=== PATIENT | female | born 1985 | race Caucasian/White ===

== ENCOUNTER → 2017-01-18 18:23 | Observation (INO) ==
[2017-01-18 09:40] VITALS: O2SAT 98
[2017-01-18] MEDS: ONDANSETRON 4 MG/2 ML INJECTION IVP PRN ×2 (10:06→16:01)
[2017-01-18] MEDS: D5LR 1,000 ML IV SCH ×2 (10:06→18:52)
[2017-01-18 10:25] VITALS: BMI 29.2
[2017-01-18 16:30] VITALS: BP 118/67; PULSE 83; RESP 18; TEMP 98.2
--- NOTE | 2017-01-18 17:54 | Progress Note ---
OB PP Progress Note Free Text - Date Date: 01/18/17 - Progress Note Progress Note: Pt reports no further bleeding, no pain. Abd gravid, NT AVSS Will dismiss to home, decreased activity. F/U in office in 3 days, sooner prn. Reviewed precautions.
--- NOTE | 2017-01-18 17:55 | Discharge Instructions ---
Discharge Plan - Med Rec/Dispo Prescriptions: No Action NO ROUTINE MEDS #0 PredniSONE [Deltasone] 60 mg PO DAILY 5 Days #15 tab Oxycodone HCl/Acetaminophen (Percocet 5-325 mg Tablet) 1 tab PO Q4HR PRN 3 Days #18 tab PRN Reason: PAIN Acetaminophen 2 tab PO TID PRN #0 PRN Reason: PAIN Azithromycin 1 tab PO DAILY #6 tab - Disposition 01 Discharged Home, Self-Care
[~2017-01-18 18:23] MED LIST: ACETAMINOPHEN 500 MG TABLET PO PRN; DiphenhydrAMINE 25 MG CAPSULE PO PRN; SALINE FLUSH 10ml SYRINGE IVF PRN
== END | disposition home or self-care (01) ==
LOC: MC
PROVIDERS: ADMIT Obstetrics & Gynecology; ATTEND Obstetrics & Gynecology

== ENCOUNTER 2017-06-14 00:07 | Inpatient (IN) ==
[2017-06-14] MEDS ORDERED: ACETAMINOPHEN 500 MG TABLET PO PRN ×2 (08:00→23:52)
[2017-06-14] MEDS ORDERED: METHYLERGONOVINE 0.2 MG/ML INJECTION IM PRN (08:00)
[2017-06-14] MEDS ORDERED: MAG-AL + SIM ORAL LIQUID 30ml PO PRN ×2 (08:00→23:52)
[2017-06-14] MEDS ORDERED: CALCIUM CARBONATE Chewable 500mg TABLET PO PRN ×2 (08:00→23:52)
[2017-06-14] MEDS ORDERED: LIDOCAINE 1% (10mg/ml) 2mL INJ PF SDV ID PRN (08:00)
[2017-06-14] MEDS ORDERED: CARBOPROST 250 MCG/ML INJECTION IM PRN (08:00)
[2017-06-14] MEDS ORDERED: OXYTOCIN DRIP 30 UNIT/500 ML ML IV PRN (08:00)
--- OUTSIDE RECORDS SUMMARY | 2017-06-14 08:01 | External Medical Summary | Continuity of Care Document ---
:1985 Author Organization [facility] Address [address] [place], [place] [id number] Phone Care Team Providers Name Role Phone [facility] Unavailable Unavailable Allergies, Adverse Reactions, Alerts Substance Reaction Severity Status No Known Drug Allergies Unknown Active Medications Medication Instructions Dosage Effective Dates Status Comments (start - stop) Diclegis 10 mg-10 mg take 1 tablet by oral - Active tablet,delayed route every day in release the morning, 1 tablet in the mid-afternoon, and 2 tablets at bedtime VITAMINS take 1 by Oral route - Active (unknown strength) every day TYLENOL (unknown take 3 tablet by ORAL - Active strength) route every 4 days as needed Problems Condition Effective Dates (start - stop) Clinical Status Pap Smear Screening, Cervix - Encounter for suprvsn of normal - , first trimester 10 weeks gestation of - Placenta previa specified as w/o - hemorrhage, first trimester 12 weeks gestation of - Encounter for suprvsn of normal - , first trimester 12 weeks gestation of - Encounter for suprvsn of normal - , first trimester 12 weeks gestation of - Encounter for suprvsn of normal - , second trimester 14 weeks gestation of - Procedures Procedure Date Unknown Results Test Name Date and Time Measure Units Reference Range Abnormal Flag Comments Unknown Advance Directives Directive Yes / No Effective Date File Name Unknown Encounters Encounter Practice Location Reason(s) Diagnoses Date Provider Care Description For Visit Team Members Mayr Bro Placenta previa Dereck-2 [facility] specified as w/o 4-201 [facility], hemorrhage, 7 [address], first [place], [place], [email or web address] Center [id number], weeks gestation Derik Vargas [place] of 120, tel:[phone] [place], [address] [place], [id number] , [place]. tel: [phone] Mary Bro Encounter for Dereck-2 [facility] Ultrasound suprvsn of 4-201 [facility], normal 7 700 [address], , [place], [place], second Center [id number], [email or web address] Derik Vargas [place] weeks gestation 120, tel:[phone] of [place], [address] [place], [id number] , [place]. tel: [phone] Mary rBo Dereck-2 [facility] 0-201 [facility]. [facility], 7 700 [address], [place], [place] [id number], Derik Vargas [place] 120, tel:[phone] [place] [address] [place], [id number] , [place]. tel: [phone] Mary Bro Encounter for Dereck-1 [facility] suprvsn of 2-201 [facility]ena. [facility], normal 7 700 [address], , first [place], [place], [email or web address] Center [id number], weeks gestation Derik Vargas [place] of 120, tel:[phone] [place] [address] [place], [id number] , [place]. tel: [phone] Mary Bro Encounter for Dereck-1 [facility] Ultrasound suprvsn of 2-201 [facility], normal 7 700 [address], , first [place], [place], [email or web address] Center [id number], weeks gestation Derik Vargas [place] of 120, tel:[phone] [place] [address] [place], [id number] , [place]. tel: [phone] Mary Bro Pap Smear Silvestre-2 [facility] In [facility] Screening, 6-201 Nena. [facility], CervixEncounter 7 700 [address], for suprvsn of [facility] [place], normal Center [id number], , first Derik Vargas [place] [id number] 120, tel:[phone] weeks gestation [place] [address] of [place], [id number] , [place]. tel: [phone] Family History Family Member Diagnosis Age At Onset No family history of Hypertension Mother Thrombosis No family history of Lung Disease No family history of Kidney Disease No family history of Stroke No family history of Ovarian Cancer No family history of Breast Cancer No family history of Thyroid Disorder Mother Diabetes No family history of Uterine Cancer No family history of Epilepsy No family history of Colon Cancer No family history of Pulmonary Embolism No family history of Cardiovascular Disease No family history of Osteoporosis Paternal Grandfather Diabetes Immunizations Vaccine Date Status Comments Unknown Payers Payer name Insurance type Covered alliance party ID Authorization(s) [employer] [place] - Medicaid MC [id number] Social History Type Description Quantity Date Captured Unknown Vital Signs Date / Height Weight BMI Pulse Blood Temperature Respiratory Body Head BMI Time: Rate Pressure Rate Surface Circumference percentile Area Unknown Chief Complaint And Reason For Visit Unknown Chief Complaint And Reason For Visit Reason For Referral Reason For Referral Unknown Plan Of Care Date Type Action Status Appointment Angela Yarbrough BOOKED Future Order: Radiology Order Ultrasound < 14 wks ([id number]) Ordered Future Order: Radiology Order Nuchal Translucency ([id number]) Ordered Date Type Problem Goal Intervention Status Start Date Unknown. History Of Present Illness Encounter Date Complaint History Of Present Illness This patient has no known history of present illness Functional Status Encounter Date Functional Assessment Cognitive Assessment Unknown Medications Administered Medication Instructions Dosage Effective Dates (start - stop) Status Comments Drug Treatment Unknown Instructions Date Instruction Additional Information anticipated course of care nutrition and weight gain counseling, special diet toxoplasmosis precautions (cats / raw meat) sexual activity exercise indications for ultrasound influenza vaccine environmental / work hazards travel tobacco (ask, advise, assess, assist and arrange) alcohol illicit / recreational drugs HIV and other routine tests risk factors identified by history use of any medications (including supplements, vitamins, herbs, OTC drugs) smoking counseling domestic violence seat belt use childbirth classes / hospital facilities hospital registration genetic testing new ob handbook
--- OUTSIDE RECORDS SUMMARY | 2017-06-14 08:01 | External Medical Summary | Continuity of Care Document ---
:1985 Author Organization [facility] Address [address] [place], [place] [id number] Phone Care Team Providers Name Role Phone [facility] Unavailable Unavailable Allergies, Adverse Reactions, Alerts Substance [...] Effective Dates (start - stop) Clinical Status Encounter for suprvsn of normal - , first trimester 12 weeks gestation of - Pap Smear Screening, Cervix - Encounter for [...] weeks gestation of - Procedures Procedure Date OB Visit No Charge Results Test Name Date and Time Measure Units Reference Range Abnormal Flag Comments Unknown Advance Directives Directive Yes / No Effective Date File Name Unknown Encounters Encounter Practice Location Reason(s) Diagnoses Date Provider Care Description For Visit Team Members Mary Bro Placenta previa Dereck-2 [facility] In [facility] specified as w/o 4-201 [facility], hemorrhage, 7 [address], first [place], [place], [email or web address] Center [id number], weeks gestation Derik Vargas [place] of 120, tel:[phone] [place] [address] [place], [id number] , [place]. tel: [phone] Mary Bro Encounter for Dereck-2 [facility] Ultrasound suprvsn of 4-201 [facility], normal 7 [address], , [place], [place], second Center [id number], [email or web address] Derik Vargas [place] weeks gestation 120, tel:[phone] of [place] [address], [id number] , [place]. tel: [phone] Mary Bro Encounter for Dereck-1 [facility] suprvsn of 2-201 [facility] [place], normal 7 700 [address], , first [place], [place], [email or web address] Center [id number], weeks gestation Derik Vargas [place] of 120, tel:[phone] [place] [address] [place] [address], [id number] , [place]. tel: [phone] Mary Bro Encounter for Dereck-1 [facility] Ultrasound suprvsn of 2-201 [facility] [place], normal 7 [address], , first [place], [email or web address] Center [id number], weeks gestation Derik Vargas [place] of 120, tel:[phone] [place] [address] [place] [address], [id number] , [place]. tel: [phone] Mary Bro Pap Smear Silvestre-2 [facility] In [facility] Screening, 6-201 [facility], CervixEncounter 7 [address], for suprvsn of [place], [place], normal Center [id number], , first Derik Vargas [place] [email or web address] 120, tel:[phone] weeks gestation [place], [address] of [place], [id number] , [place]. tel: [phone] Family History Family Member Diagnosis Age At [...] Unknown Payers Payer name Insurance type Covered green party ID Authorization(s) [employer] Plan [place] - Medicaid MC [id number] Social History Type Description Quantity Date Captured Alcohol Use Details No Caffeine Use Details Unknown Tobacco Use Status Unknown Smoking Status Never smoker Vital Signs Date / Height Weight BMI Pulse Blood Temperature Respiratory Body Head BMI Time: Rate Pressure Rate Surface Circumference percentile Area Unknown Chief Complaint And Reason For Visit Unknown Chief Complaint And Reason For Visit Reason For Referral Reason For Referral Unknown Plan Of Care Date Type Action Status Appointment Angela Yarbrough BOOKED Future Order: Radiology Order Ultrasound < 14 wks ([id number]) Ordered Future Order: Radiology Order Nuchal Translucency ([id number]) Ordered Date Type Problem Goal Intervention Status [...] (ask, advise, assess, assist and arrange) alcohol HIV and other routine tests risk factors identified by history illicit / recreational drugs use of any medications (including supplements, vitamins, herbs, OTC drugs) smoking counseling domestic violence seat belt use childbirth classes / hospital facilities hospital registration genetic testing new ob handbook
--- OUTSIDE RECORDS SUMMARY | 2017-06-14 08:02 | External Medical Summary | Continuity of Care Document ---
:1985 Author Organization [facility] Address [address] [place], [place] [id number] Phone Care Team Providers Name Role Phone [facility] Unavailable Unavailable Allergies, Adverse Reactions, Alerts Substance [...] Effective Dates (start - stop) Clinical Status Placenta previa specified as w/o - hemorrhage, first trimester 12 weeks gestation of - Pap Smear Screening, Cervix - Encounter for suprvsn of normal - , first trimester 10 weeks gestation of - Encounter for suprvsn [...] hemorrhage, 7 [address], first [place], [place], Center [id number], weeks gestation Derik Vargas [place] of 120, tel:[phone] [place] [address] [place], [id number] , [place]. tel: [phone] Mary Bro Encounter for Dereck-2 [facility] Ultrasound suprvsn of 4-201 [facility], normal 7 [address], , [place], second Center [id number], [email or web address] Derik Vargas [place] weeks gestation 120, tel:[phone] of [place] [address], [id number] , [place]. tel: [phone] Mary Bro Encounter for Dereck-1 [facility] suprvsn of 2-201 [facility], normal 7 700 [address], , first [place], [id number] Center [id number], weeks gestation Derik Vargas [place] of 120, tel:[phone] [address] [place] [address], [id number] , [place]. tel: [phone] Mary Bro Encounter for Dereck-1 [facility] In [facility] Ultrasound suprvsn of 2-201 [facility] [place], normal 7 700 [address], , first [place], [email or web address] Center [id number], weeks gestation Derik Vargas [place] of 120, tel:[phone] [place] [address] [place] [address], [id number] , [place]. tel: [phone] Mary Bro Pap Smear Silvestre-2 [facility] In [facility]omens Screening, 6-201 [facility], CervixEncounter 7 [address], for suprvsn of [place], normal Center [id number], , first Derik Vargas [place] [email or web address] 120, tel:[phone] weeks gestation [place], [address] of [place], [id number] , [place]. tel: [phone] Family History Family Member Diagnosis Age At [...] Unknown Payers Payer name Insurance type Covered constitution party ID Authorization(s) [employer] [place] - Medicaid MC [id number] Social History Type Description Quantity Date Captured [...] Order: Radiology Order Ultrasound < 14 wks ([id number]) Ordered Future Order: Radiology Order Nuchal Translucency ([id number]) Ordered Date Type Problem Goal Intervention Status [...]
--- OUTSIDE RECORDS SUMMARY | 2017-06-14 08:02 | External Medical Summary | Continuity of Care Document ---
:1985 Author Organization [facility] Address [address] [place], [place] [id number] Phone Care Team Providers Name Role Phone [facility] Unavailable Unavailable Allergies, Adverse Reactions, Alerts Substance Reaction Severity Status No Known Drug Allergies Unknown Active Medications Medication Instructions Dosage Effective Dates Status Comments (start - stop) RANITIDINE HCL take 1 capsule by - Active (unknown strength) oral route every day Diclegis 10 mg-10 take 1 tablet by - Active mg tablet,delayed oral route every release day in the morning, 1 tablet in the mid-afternoon, and 2 tablets at bedtime VITAMINS take 1 by Oral route - Active (unknown strength) every day TYLENOL (unknown take 3 tablet by - Active strength) ORAL route every 4 days as needed Benadryl 25 mg take 1 capsule by - Active capsule oral route every 4 hours as needed Tums 200 mg chew 1 - 2 Tablet by Not Available - Active calcium (500 mg) Oral route every chewable tablet day Problems Condition Effective Dates (start - stop) Clinical Status Supervision of other high risk - pregnancies, third trimester Spotting complicating , third - trimester Abnormal hematolog finding on - screening of mother 32 weeks gestation of - Pap Smear Screening, Cervix - Encounter for suprvsn of normal - , first trimester 10 weeks gestation of - Encounter for suprvsn of normal - , third trimester 28 weeks gestation of - Supervision of other high risk - pregnancies, third trimester Abnormal hematolog finding on - screening of mother Encounter for suprvsn of normal - , third trimester 32 weeks gestation of - Supervision of other high risk - pregnancies, third trimester Abnormal hematolog finding on - screening of mother Polyhydramnios, third trimester, not - applicable or unsp 35 weeks gestation of - Supervision of other high risk - pregnancies, third trimester Spotting complicating , third - trimester Abnormal hematolog finding on - screening of mother 32 weeks gestation of - Supervision of other high risk - pregnancies, third trimester Abnormal hematolog finding on - screening of mother Polyhydramnios, third trimester, not - applicable or unsp 35 weeks gestation of - Spotting complicating , - second trimester Encounter for suprvsn of normal - , second trimester 24 weeks gestation of - Spotting complicating , - second trimester Encounter for suprvsn of normal - , second trimester 19 weeks gestation of - Spotting complicating , - second trimester Placenta previa with hemorrhage, - second trimester 16 weeks gestation of - Spotting complicating , - second trimester Placenta previa with hemorrhage, - second trimester 16 weeks gestation of - Spotting complicating , third - trimester Abnormal hematolog finding on - screening of mother 34 weeks gestation of - Spotting complicating , third - trimester Abnormal hematolog finding on - screening of mother 32 weeks gestation of - Spotting complicating , third - trimester Encounter for suprvsn of normal - , third trimester 34 weeks gestation of - Abnormal hematolog finding on - screening of mother Encounter for suprvsn of normal - , third trimester 31 weeks gestation of - Abnormal hematolog finding on - screening of mother Polyhydramnios, third trimester, not - applicable or unsp 35 weeks gestation of - Placenta previa specified as w/o - hemorrhage, first trimester 12 weeks gestation of - Encounter for suprvsn of normal - , first trimester 12 weeks gestation of - Encounter for suprvsn of normal - , first trimester 12 weeks gestation of - Encounter for suprvsn of normal - , second trimester 19 weeks gestation of - Encounter for suprvsn of normal - , second trimester 14 weeks gestation of - Encounter for suprvsn of normal - , second trimester 16 weeks gestation of - Procedures Procedure Date biophys prfl w/o nstress test Results Test Name Date and Time Measure Units Reference Range Abnormal Flag Comments Unknown Advance Directives Directive Yes / No Effective Date File Name Unknown Encounters Encounter Practice Location Reason(s) Diagnoses Date Provider Care Team Description For Visit Members Mary Bro Supervision of May- Mariza In Womens other high risk Nena. [facility], pregnancies, 7 700 [address] third Medical [address]22, [facility]ssm [facility], hematolog finding Derik Vargas, on 120, [id number], screening of [place] mother[place]hydramn [place], tel:[phone] ios, third [phone] trimester, not , [place]. applicable or tel: [email or web address] weeks [id number] gestation of Mary Bro Supervision of Dec-2 Mariza In Womens other high risk Nena. [facility], pregnancies, 7 700 [address] third Medical 1522, trimesterAbnoal [facility], hematolog finding Derik Vargas, on 120, [id number], screening of [place], [place] motherPolyhydramn [place], tel: ios, third trimester, not , [place]. applicable or tel: [email or web address] weeks [phone] gestation of [facility] Abnormal Dec-2 Mariza In Womens Ultrasound hematolog finding 7-201 Nena. [facility], on 7 700 PO Box screening of Medical 1522, motherPolyhydramn [facility], ios, third Derik Vargas, trimester, not 120, [id number], applicable or [place], [place] [email or web address] weeks [place], tel: gestation of [phone] , [place]. tel: [phone] [facility] Spotting Dec-2 Mariza In Womens complicating 0-201 Nena. [facility], , third 7 700 [address] [facility] 1522, r for suprvsn of [facility], normal , Derik Vargas, third [email or web address] 120, [id number], weeks gestation [place], [place] of [place], tel:[phone] , [place]. tel: [phone] [facility] Spotting Dec-2 Mariza In Womens Ultrasound complicating 0-201 Nena. [facility], , third 7 700 [facility], hematolog finding [facility], on Derik Vargas, screening of 120, [id number], [email or web address] weeks [place], [place] gestation of [place], tel: , [place]. tel: [phone] [facility] Supervision of Dec-1 Sobbing Referring In Womens other high risk 1-201 Sen. Provider: [facility], pregnancies, 7 700 Nena [address] third Medical Mariza L, 1522, [facility] [address], hematolog finding [facility] [place], on [facility] , screening of 120, Derik 120, [place] motherEncounter Dieudonne [place], tel: for suprvsn of [place], [place], normal , [address], [id number]. third [id number] [place]. tel: weeks gestation tel: [phone] of [phone] Mary Bro Supervision of Dec-1 Mariza In Womens Ultrasound other high risk 1-201 [facility]. [facility], pregnancies, 7 700 PO Box third Medical 1522, trimesterSpotting [facility] [place], complicating Derik Vargas, , third 120, [id number], trimesterAbnormal [place], [place] hematolog finding [place], tel: on [phone] screening of , [place]. [email or web address] weeks tel: gestation of [phone] [facility] Spotting Dec-0 Mariza In Womens complicating 6-201 [facility]. [facility] [place], , third 7 700 PO Box trimesterAbnormal Medical 1522, hematolog finding [facility] [place], on Derik Vargas, screening of 120, [id number], [email or web address] weeks [place], [place] gestation of [place], tel: [phone] , [place]. tel: [phone] Mary Bro Supervision of Dec-0 Mariza In Womens Ultrasound other high risk 6-201 [facility]. [facility], pregnancies, 7 700 PO Box third Medical 1522, trimesterSpotting [facility] [place], complicating Derik Vargas, , third 120, [id number], trimesterAbnormal [place], [place] hematolog finding [place], tel: on [phone] screening of , [place]. [email or web address] weeks tel: gestation of [phone] [facility] Abnormal Nov-3 Mariza In Womens hematolog finding 0-201 [facility]. [facility], on 7 700 PO Box screening of Medical 1522, motherEncounter [facility] [place], for suprvsn of Derik Vargas, normal , 120, [id number], third [email or web address] [place], [place] weeks gestation [place], tel: of [phone] , [place]. tel: [phone] Mary Bro Encounter for Nov-0 Mariza In Womens suprvsn of normal 8-201 [facility]. [facility] [place], , third 7 700 PO Box weeks Medical 1522, gestation of [facility], Derik Vargas, 120, [id number], [place], [place], tel:[phone] , [place]. tel: [phone] Mary Bro Spotting Oct-1 Mariza Referring In Womens complicating 1-201 Nena. Provider: Health LION[facility], , second 7 700 Nena PO Box trimesterEncounte Medical Mariza L, 1522, r for suprvsn of [address], normal , Derik Vargas, second 120, Center [id number], [email or web address] weeks Dieudonne [facility] 120, [place] gestation of [place], [place], tel: [place], , [place]. [id number]. tel: tel: [phone] Mary Bro Encounter for Sep-0 Mariza In Womens suprvsn of normal 6-201 Nena. [facility], , second 7 700 PO Box weeks Medical 1522, gestation of [facility], Derik Vargas, 120, , [place], [place], tel:[phone] , [place]. tel: [phone] Mary Bro Spotting Sep-0 Mariza In Womens Ultrasound complicating 6-201 [facility]. [facility] [place], , second 7 700 PO Box trimesterEncounte Medical 1522, r for suprvsn of [facility], normal , Derik Vargas, second 120, [id number], [email or web address] weeks [place], gestation of [place], tel: [phone] , [place]. tel: [phone] Mary Bro Encounter for Aug-2 Mariza In Womens suprvsn of normal 1-201 [facility]. [facility] [place], , second 7 700 PO Box [email or web address] weeks Medical 1522, gestation of [facility], Derik Vargas, 120, [id number], [place], [place], tel:[phone] , [place]. tel: [phone] Mary Bro Spotting Aug-1 Mariza In Womens complicating 7-201 [facility]. [facility] [place], , second 7 700 PO Box trimesterPlacenta Medical 1522, previa with [facility], hemorrhage, Derik Vargas, second 120, [id number], [email or web address] weeks [place], [place] gestation of [place], tel:+ [phone] , [place]. tel: [phone] Mary Bro Spotting Aug-1 Mariza In Womens Ultrasound complicating 7-201 [facility]. [facility] [place], , second 7 700 PO Box trimesterPlacenta Medical 1522, previa with [facility], hemorrhage, Derik Vargas, second 120, [id number], [email or web address] weeks [place], [place] gestation of [place], tel:+ [phone] , [place]. tel: [phone] Mary Bro Placenta previa Dereck-2 Mariza In Womens specified as w/o 4-201 [facility]. [facility] [place], hemorrhage, first 7 700 PO Box [email or web address] weeks Medical 1522, gestation of [facility], Derik Vargas, 120, [id number], [place], [place], tel:[phone] , [place]. tel: [phone] Mary Bro Encounter for Dereck-2 Mariza In Womens Ultrasound suprvsn of normal 4-201 [facility]. [facility] [place], , second 7 700 PO Box [email or web address] weeks Medical 1522, gestation of [facility], Derik Vargas, 120, , [place], [place], tel:[phone] , [place]. tel: [phone] Mary Bro Encounter for Dereck-1 Mariza In Womens suprvsn of normal 2-201 [facility]. [facility] [place], , first 7 700 PO Box [email or web address] weeks Medical 1522, gestation of [facility], Derik Vargas, 120, [id number], [place], [place], tel:[phone] , [place]. tel: [phone] Mary Bro Encounter for Dereck-1 Mariza In Womens Ultrasound suprvsn of normal 2-201 [facility]. [facility] [place], , first 7 700 PO Box [email or web address] weeks Medical 1522, gestation of [facility] [place], Derik Vargas, 120, [id number], [facility] [place], tel:[phone] , [place]. tel: [phone] Mary Bro Pap Smear Silvestre- [facility] In Womens Screening, [facility], CervixEncounter 7 700 PO Box for suprvsn of Medical 1522, normal , [facility], first [email or web address] Derik Vargas, weeks gestation 120, [id number], [facility] [place], tel:[phone] [address] , [place]. tel: [phone] Family History Family Member Diagnosis Age At [...] Grandfather Diabetes Immunizations Vaccine Date Status Comments Tdap completed Source: New Immunization Record Influenza, injectable, completed Source: New Immunization Record quadrivalent, preservative free, 3 yrs or older Payers Payer name Insurance type Covered alliance party ID Authorization(s) [employer] [place] Medicaid MC [id number] [employer] [place] Medicaid MC [id number] [employer] [place] Medicaid MC [id number] Social History Type Description Quantity Date Captured Unknown Vital Signs Date / Height Weight BMI Pulse Blood Temperature Respiratory Body Head BMI Time: Rate Pressure Rate Surface Circumference percentile Area Unknown Chief Complaint And Reason For Visit Unknown Chief Complaint And Reason For Visit Reason For Referral Reason For Referral Unknown Plan Of Care Date Type Action Status Appointment Angela Yarbrough BOOKED Appointment Angela Yarbrough BOOKED Appointment Angela Yarbrough BOOKED Appointment Angela Yarbrough BOOKED Appointment Angela Yarbrough BOOKED Appointment Angela Yarbrough BOOKED Appointment Angela Yarbrough BOOKED Appointment Angela Yarbrough BOOKED Future Order: Radiology Order Biophysical Profile without NST Ordered ([id number]) Future Order: Radiology Order Ultrasound OB Follow-up ([id number]) Ordered Future Order: Radiology Order Biophysical Profile without NST Ordered ([id number]) Future Order: Radiology Order Complete OB Ultrasound > 14 Ordered Weeks ([id number]) Future Order: Radiology Order Ultrasound, OB Limited ([id number]) Ordered Future Order: Radiology Order Biophysical Profile without NST Ordered ([id number]) Future Order: Radiology Order Biophysical Profile without NST Ordered ([id number]) Future Order: Radiology Order Biophysical Profile without NST Ordered ([id number]) Future Order: Radiology Order Ultrasound < 14 wks ([id number]) Ordered Future Order: Radiology Order Nuchal Translucency ([id number]) Ordered Date Type Problem Goal Intervention Status [...] and arrange) alcohol illicit / recreational drugs use of any medications (including supplements, vitamins, herbs, OTC drugs) smoking counseling domestic violence seat belt use childbirth classes / hospital facilities hospital registration genetic testing new ob handbook HIV and other routine tests risk factors identified by history
--- OUTSIDE RECORDS SUMMARY | 2017-06-14 08:02 | External Medical Summary | Continuity of Care Document ---
:1985 Author Organization [facility] Address [address] [place], [place] [id number] Phone Care Team Providers Name Role Phone [facility] Unavailable Unavailable Allergies, Adverse Reactions, [...] Effective Dates (start - stop) Clinical Status Spotting complicating , - second trimester Placenta previa with hemorrhage, - second trimester 16 weeks gestation of - 10 weeks gestation of - Encounter for suprvsn of normal - , first trimester Pap Smear Screening, Cervix - Spotting complicating , - second trimester Encounter for suprvsn of normal - , second trimester 19 weeks gestation of - Spotting complicating , - second trimester Placenta previa with hemorrhage, - second trimester 16 weeks gestation of - Placenta previa specified [...] second trimester 16 weeks gestation of - Encounter for suprvsn of normal - , second trimester 19 weeks gestation of - Procedures Procedure Date 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 [facility] [place], , second 7 700 PO Box weeks Medical 1522, gestation of [facility], Derik Vargas, 120, [id number], [place], [place], tel:[phone] , [place]. tel:[phone] Mary Bro Spotting Sep-0 Mariza In Womens Ultrasound complicating 6-201 [facility]. [facility] [place], , second 7 700 PO Box trimesterEncounter Medical 1522, for suprvsn of [facility], normal , Derik Vargas, second [email or web address] 120, [id number], weeks gestation of [facility] [place], tel:[phone] , [place]. tel:[phone] [facility] Encounter for Aug-2 Mariza In Womens suprvsn of normal 1-201 [facility] [place], , second 7 700 PO Box [email or web address] weeks Medical 1522, gestation of [facility], Derik Vargas, 120, [id number], [place], [place], tel:[phone] , [place]. tel:[phone] Mary rBo Spotting Aug-1 Mariza In Womens complicating 7-201 [facility] [place], , second 7 700 PO Box trimesterPlacenta Medical 1522, previa with [facility] [place], hemorrhage, second Derik Vargas, [email or web address] weeks 120, [id number], gestation of [place], [place], tel:[phone] , [place]. tel: [phone] Mary Bro Spotting Aug-1 Mariza In Womens Ultrasound complicating 7-201 [facility] [place], , second 7 700 PO Box trimesterPlacenta Medical 1522, previa with [facility] [place], hemorrhage, second Derik Vargas, [email or web address] weeks 120, , gestation of [place], [place], tel:[phone] , [place]. tel: [phone] Mary Bro Placenta previa Dereck-2 Mariza In Womens specified as w/o 4-201 [facility]. [facility], hemorrhage, first 7 700 PO Box [email or web address] weeks Medical 1522, gestation of [facility], Derik Vargas, 120, , [place], [place], tel:[phone] , [place]. tel: [phone] Mary Bro Encounter for Dereck-2 Mariza In Womens Ultrasound suprvsn of normal 4-201 [facility]. [facility] [place], , second 7 700 PO Box [email or web address] weeks Medical 1522, gestation of [facility], Derik Vargas, 120, , [place], [place], tel:+ [phone] , [place]. tel: [phone] Mary Bro Encounter for Dereck-1 Mariza In Womens suprvsn of normal 2-201 [facility]. [facility] [place], , first 7 700 PO Box weeks Medical 1522, gestation of [facility], Derik Vargas, 120, , [place], [place], tel:[phone] , [place]. tel: [phone] Mary Bro Encounter for Dereck-1 Mariza In Womens Ultrasound suprvsn of normal 2-201 [facility]. [facility] [place], , first 7 700 PO Box [email or web address] weeks Medical 1522, gestation of [facility], Derik Vargas, 120, [id number], [place], [place], tel:[phone] [address] , [place]. tel: [phone] Mary Bro 10 weeks gestation Silvestre-2 Mariza In Womens of 6-201 Nena. [facility], pregnancyEncounter 7 700 PO Box for suprvsn of Medical 1522, normal , [facility], first trimesterPap Derik Vargas, Smear Screening, 120, [id number], Cervix [place], [place], tel:[phone] [address] , [place]. tel: [phone] Family History Family Member Diagnosis Age At [...] Unknown Payers Payer name Insurance type Covered democrat ID Authorization(s) [employer] [place] - Medicaid MC [id number] Social History Type Description Quantity Date Captured Alcohol Use Details No Caffeine Use Details Unknown Tobacco Use Status Unknown Smoking Status Never smoker Vital Signs Date / Height Weight BMI Pulse Blood Temperature Respiratory Body Head BMI Time: Rate Pressure Rate Surface Circumference percentile Area 154.40 29.6 117/77 lbs 6 mm[Hg] 8:35 kg/m AM eter (2) Chief Complaint And Reason For Visit Unknown Chief Complaint And Reason For Visit Reason For Referral Reason For Referral Unknown Plan Of Care Date Type Action Status Appointment Angela Yarbrough BOOKED Future Order: Radiology Order Complete OB Ultrasound > 14 Ordered Weeks ([id number]) Future Order: Radiology Order Ultrasound, OB Limited ([id number]) Ordered Future Order: Radiology Order Ultrasound < 14 wks ([id number]) Ordered Future Order: Radiology Order Nuchal Translucency ([id number]) Ordered Date Type Problem Goal Intervention Status [...]
--- OUTSIDE RECORDS SUMMARY | 2017-06-14 08:02 | External Medical Summary | Continuity of Care Document ---
:1985 Author Organization [facility] Address [address] [place], [place] [id number] Phone Care Team Providers Name Role Phone [facility] Unavailable Unavailable Allergies, Adverse Reactions, Alerts [...] - stop) Clinical Status Spotting complicating , third - trimester Encounter for suprvsn of normal - , third trimester 34 weeks gestation of - Pap Smear Screening, [...] other high risk - pregnancies, third trimester Polyhydramnios, third trimester, not - applicable or unsp 36 weeks gestation of - Supervision of other [...] of mother 32 weeks gestation of - Abnormal hematolog finding on - screening of mother Polyhydramnios, third trimester, not - applicable or unsp 36 weeks gestation of - Abnormal hematolog finding [...] Procedure Date OB Visit No Charge - SANDER [employer] Results Test Name Date and Time Measure Units Reference Range Abnormal Flag Comments Unknown Advance Directives Directive Yes / No Effective Date File Name Unknown Encounters Encounter Practice Location Reason(s) Diagnoses Date Provider Care Team Description For Visit [facility] Supervision of Mariza In Womens other high risk 3-201 [facility] [place], pregnancies, 8 700 [address] third Medical 1522, trimesterRust Rolly, amnios, third Derik Vargas [place], trimester, not 120, [id number], applicable or [place] [email or web address] weeks [place], tel:+ gestation of [phone] , [place]. tel: [phone] [facility] Abnormal Kevyn-0 [facility] Ultrasound hematolog finding 3-201 [facility] [place], on 8 700 PO Box screening of Medical 1522, motherPolyhydramn Center Wayan, ios, third Derik Vargas, trimester, not 120, , applicable or [place], [place] unsp36 weeks [place], tel:+ gestation of [phone] 1967[address] , [place]. tel: [phone] [facility] Supervision of Dec-2 [facility] In Womens other high risk 7-201 [facility] [place], pregnancies, 7 700 PO Box third Medical 1522, trimesterAbnormal Center Wayan, hematolog finding Derik Vargas, on 120, , screening of [place], motherPolyhydramn [place], tel:+ ios, third trimester, not , [place]. applicable or tel: [email or web address] weeks [phone] gestation of [facility] Supervision of Dec-2 Mariza In Womens other high risk 7-201 [facility] [place], pregnancies, 7 700 PO Box third Medical 1522, trimesterAbnormal Center Wayan, hematolog finding Derik Vargas, on 120, , screening of [place], motherPolyhydramn [place], tel:+ ios, third trimester, not , [place]. applicable or tel: [email or web address] weeks [phone] gestation of [facility] Abnormal Dec-2 [facility] In [facility]om[facility] Ultrasound hematolog finding 7-201 [facility] [place], on 7 700 PO Box screening of Medical 1522, motherPolyhydramn Center Wayan, ios, third Derik Vargas, trimester, not 120, , applicable or [place] [email or web address] weeks [place], tel:+[phone] gestation of [phone] 196790 , [place]. tel: [phone] [facility] Spotting Dec-2 Mariza In Womens complicating 0-201 [facility] [place], , third 7 700 [facility], r for suprvsn of [facility], normal , Derik Vargas, third [email or web address] 120, [id number], weeks gestation [place], of [place], tel:901 , [place]. tel: [phone] [facility] Spotting Dec-2 [facility] Ultrasound complicating 0-201 [facility] [place], , third 7 700 PO Box trimesterAbnormal Medical 1522, hematolog finding Center Wayan, on Derik Vargas, screening of 120, [id number], [email or web address] weeks Rbo, [place] gestation of [place], tel: [phone] [address] , [place]. tel: [phone] Mary Bro Supervision of May- Sobbing Referring In Womens other high risk 1-201 Sen. Provider: Health [place], pregnancies, 7 700 Nena [address] Box third Medical Mariza L, 1522, trimesterAbnormal Center [address] [place] [address], hematolog finding [facility], on Suite Center , screening of 120, Derik 120, [place] motherEncounter [place], tel: for suprvsn of [place], [place], normal , [address], [id number]. third [place]. tel:+ weeks gestation tel: [phone] of [phone] Mary Bro Supervision of Dec- [facility] Ultrasound other high risk 1-201 [facility] [place], pregnancies, 7 700 PO Box third Medical 1522, trimesterSpotting Center Wayan, complicating Derik Vargas, , third 120, [id number], trimesterAbnormal [place], [place] hematolog finding [place], tel: on [phone] screening of , [place]. [email or web address] weeks tel:+07-04 gestation of [phone] [facility] Spotting Dec-0 Mariza In Womens complicating 6-201 [facility] [place], , third 7 700 PO Box trimesterAbnormal Medical 1522, hematolog finding [facility], on Derik Vargas, screening of 120, [id number], [email or web address] weeks [place], [place] gestation of [place], tel: [phone] [address] , [place]. tel: [phone] Mary Bro Supervision of Dec-0 Mariza In Womens Ultrasound other high risk 6-201 [facility] [place], pregnancies, 7 700 PO Box third Medical 1522, trimesterSpotting [facility], complicating Derik Vargas, , third 120, [id number], trimesterAbnormal [place], [place] hematolog finding [place], tel: on [phone] screening of , [place]. [email or web address] weeks tel: gestation of [phone] [facility] Abnormal Nov-3 Mariza In Womens hematolog finding 0-201 [facility] [place], on 7 700 PO Box screening of Medical 1522, motherEncounter [facility], for suprvsn of Derik Vargas, normal , 120, [id number], third [email or web address] [place], [place] weeks gestation [place], tel: of [phone] [address] , [place]. tel: [phone] Mary Bro Encounter for Nov-0 Mariza In Womens suprvsn of normal 8-201 [facility] [place], , third 7 700 PO Box [email or web address] weeks Medical 1522, gestation of [facility], Derik Vargas, 120, [id number], Bro, [place], tel:901 , [place]. tel: [phone] Mary Bro Spotting Oct-1 Mariza Referring In Womens complicating 1-201 Nena. Provider: Health [place], , second 7 700 Nena PO Box trimesterEncounte Medical Mariza L, 1522, r for suprvsn of [address], normal , Derik Vargas, second 120, Center , [email or web address] weeks [place] Derik 120, [place] gestation of MARSH[place], [place], tel: [phone] [place], , [place]. [id number]. tel: tel: [phone] Mary Bro Encounter for Sep-0 Mariza In Womens suprvsn of normal 6-201 [facility] [place], , second 7 700 PO Box [email or web address] weeks Medical 1522, [facility] of [facility], Derik Vargas, 120, [id number], Bro, [place], tel:[phone] , [place]. tel: [phone] [facility] Spotting Sep-0 [facility] In Womens Ultrasound complicating 6-201 [facility] [place], , second 7 700 PO Box trimesterEncounte Medical 1522, r for suprvsn of [facility], normal , Derik Vargas, second 120, [id number], [email or web address] weeks [place], [place] gestation of [place], tel:+ [phone] [address] , [place]. tel: [phone] [facility] Encounter for Aug-2 [facility]iza In Womens suprvsn of normal 1-201 [facility] [place], , second 7 700 PO Box [email or web address] weeks Medical 1522, gestation of [facility], Derik Vargas, 120, [id number], Bro, [place], tel:+ [phone] , [place]. tel: [phone] [facility] Spotting Aug-1 [facility] In [facility]omens Ultrasound complicating 7-201 [facility] [place], , second 7 700 PO Box trimesterPlacenta Medical 1522, previa with [place] Rolly hemorrhage, Derik Vargas, second 120, [id number], [email or web address] weeks [place], [place] gestation of [place], tel:[phone] [address] , [place]. tel: [phone] [facility] Spotting Aug-1 Mariaz In Womens complicating 7-201 [facility] [place], , second 7 700 PO Box trimesterPlacenta Medical 1522, previa with [place] Wayan, hemorrhage, Derki Vargas, second 120, [id number], [email or web address] weeks [place], [place] gestation of [place], tel:[phone] [address] , [place]. tel: [phone] Mary Bro Placenta previa Dereck-2 Mariza In Womens specified as w/o 4-201 [facility] [place], hemorrhage, first 7 700 PO Box [email or web address] weeks Medical 1522, gestation of [facility], Derik Vargas, 120, , [place], tel:[phone] [address] , [place]. tel: [phone] Mary Bro Encounter for Dereck-2 [facility]om[facility] Ultrasound suprvsn of normal 4-201 [facility] [place], , second 7 700 PO Box weeks Medical 1522, gestation of [facility], Dreik Vargas, 120, [id number], [place], tel:[phone] , [place]. tel: [phone] Mary Bro Encounter for Dereck-1 Mariza In Womens suprvsn of normal 2-201 [facility] [place], , first 7 700 PO Box [email or web address] weeks Medical 1522, gestation of [facility], Derik Vargas, 120, , [place], tel:[phone] , [place]. tel: [phone] Mary Bro Encounter for Dereck-1 [facility] In Womens Ultrasound suprvsn of normal 2-201 [facility] [place], , first 7 700 PO Box [email or web address] weeks Medical 1522, gestation of [facility], Derik Vargas, 120, [id number], [place], [place], tel:[phone] , [place]. tel: [phone] Mary Bro Pap Smear Silvestre-2 Mariza In Womens Screening, 6-201 [facility] [place], CervixEncounter 7 700 PO Box for suprvsn of Medical 1522, normal , [facility], first Derik Vargas, weeks gestation 120, , of [place], tel:[phone] [address] , [place]. tel: [phone] Family History Family Member Diagnosis Age At [...] older Payers Payer name Insurance type Covered libertarian ID Authorization(s) [employer] [place] Medicaid MC [id number] [employer] [place] Medicaid MC [id number] [employer] [place] Medicaid MC [id number] Social History Type Description Quantity Date Captured Alcohol Use Details No Caffeine Use Details Unknown Tobacco Use Status Unknown Smoking Status Never smoker Vital Signs Date / Height Weight BMI Pulse Blood Temperature Respiratory Body Head BMI Time: Rate Pressure Rate Surface Circumference percentile Area 187.00 35.9 141/2017 lbs 2 mm[Hg] 11:27 kg/m AM eter (2) Chief Complaint And Reason For Visit Unknown Chief Complaint And Reason For Visit Reason For Referral Reason For Referral Unknown Plan Of Care Date Type Action Status Appointment Angela Yarbrough BOOKED Appointment Angela Yarbrough BOOKED Appointment Angela Yarbrough BOOKED Appointment Angela Yarbrough BOOKED Appointment Angela Yarbrough BOOKED Future Order: Radiology Order Ultrasound OB Follow-up ([id number]) Ordered Future Order: Radiology Order Biophysical Profile without NST Ordered ([id number]) Future Order: Radiology Order Biophysical Profile without NST Ordered ([id number]) Future Order: Radiology Order Complete OB Ultrasound > 14 Ordered Weeks ([id number]) Future Order: Radiology Order Ultrasound, OB Limited ([id number]) Ordered Future Order: Radiology Order Biophysical Profile without NST Ordered ([id number]) Future Order: Radiology Order Ultrasound OB Follow-up ([id number]) Ordered Future Order: Radiology Order Biophysical Profile without NST Ordered ([id number]) Future Order: Radiology Order Biophysical Profile without NST Ordered ([id number]) Future Order: Radiology Order Biophysical Profile without NST Ordered ([id number]) Future Order: Radiology Order Ultrasound < 14 wks ([id number]) Ordered Future Order: Radiology Order Nuchal Translucency ([id number]) Ordered Date Type Problem Goal Intervention Status [...]
--- OUTSIDE RECORDS SUMMARY | 2017-06-14 08:02 | External Medical Summary | Continuity of Care Document ---
:1985 Author Organization [facility] Address [address] [place], [place] [id number] Phone Care Team Providers Name Role Phone [facility] Unavailable Unavailable Allergies, Adverse Reactions, Alerts [...] Status Spotting complicating , third - trimester Abnormal [...] third trimester 31 weeks gestation of - Placenta previa specified [...] Team Description For Visit Members Mary Bro Spotting Dec-2 Mariza In Womens complicating 0-201 [facility] [place], , third 7 700 PO Box [facility] 1522, r for suprvsn of [facility], normal , Derik Vargas, third [email or web address] 120, [id number], weeks gestation [place], [place] of [place], tel:+[phone] , [place]. tel: [phone] Mary Bro Spotting Dec-2 [facility]iza In Womens Ultrasound complicating 0-201 [facility] [place], , third 7 700 PO Box trimesterAbnormri Medical 1522, hematolog finding [facility], on Derik Vargas, screening of 120, [id number], [email or web address] weeks Bro, [place] gestation of [place], tel:+ [phone] [address] , [place]. tel: [phone] Mary Bro Supervision of May-1 Sobbing Referring In Womens other high risk 1-201 Sen. Provider: Health [place], pregnancies, 7 700 Nena PO Box third Medical Mariza L, 1522, [facility] [address], hematolog finding [facility], on Suite Center , screening of 120, Derik 120, [place] motherEncounter [place], tel:+[phone] for suprvsn [place], normal , [address], [id number]. third [email or web address] [place]. tel:+ weeks gestation tel: [phone] of [phone] Mary Bro Supervision of Dec-1 Mariza In Womens Ultrasound other high risk 1-201 [facility] [place], pregnancies, 7 700 PO Box third Medical 1522, trimesterSpotting Center [facility], complicating Derik Vargas, , third 120, [id number], trimesterAbnormal Bro, [place] hematolog finding [place], tel: on [phone] screening of , [place]. [email or web address] weeks tel:+07-04 gestation of [phone] [facility] Spotting Dec-0 Mariza In Womens complicating 6-201 [facility] [place], , third 7 700 PO Box trimesterAbnormal Medical 1522, hematolog finding [facility], on Derik Vargas, screening of 120, [id number], [email or web address] weeks Bro, [place] gestation of [place], tel: [phone] [address] , [place]. tel: [phone] Mary Bro Supervision of Dec-0 Mariza In Womens Ultrasound other high risk 6-201 [facility] [place], pregnancies, 7 700 PO Box third Medical 1522, trimesterSpotting [facility], complicating Derik Vargas, , third 120, [id number], trimesterAbnormal Bro, [place] hematolog finding [place], tel:+ on [phone] screening of , [place]. weeks tel: gestation of [phone] [facility] Abnormal Nov-3 Mariza In Womens hematolog finding 0-201 [facility] [place], on 7 700 PO Box screening of Medical 1522, motherEncounter [facility], for suprvsn of Derik Vargas, normal , 120, [id number], third [email or web address] Bro, [place] weeks gestation [place], tel:+ of [phone] , [place]. tel: [phone] Mary Bro Encounter for Nov-0 Mariza In Womens suprvsn of normal 8-201 [facility] [place], , third 7 700 PO Box [email or web address] weeks Medical 1522, gestation of [facility], Derik Vargas, 120, [id number], Bro, [place], tel:[phone] , [place]. tel: [phone] Mary Bro Spotting Oct-1 Mariza Referring In Womens complicating 1-201 Nena. Provider: Health [place], , second 7 700 Nena PO [facility] Mariza L, 1522, r for suprvsn of [address], normal , Derik Vargas, second 120, Center [id number], [email or web address] weeks [place] Derik 120, [place] gestation of [place], [place], tel: [place], , [place]. [id number]. tel: tel: [phone] Mary Bro Encounter for Sep-0 Mariza In Womens suprvsn of normal 6-201 [facility] [place], , second 7 700 PO Box [email or web address] weeks Medical 1522, gestation of [facility], Derik Vargas, 120, , [place], [place], tel:[phone] , [place]. tel: [phone] Mary Bro Spotting Sep-0 Mariza In Womens Ultrasound complicating 6-201 [facility] [place], , second 7 700 PO [facility] 1522, r for suprvsn of [facility], normal , Derik Vargas, second 120, [id number], [email or web address] weeks [place], [place] gestation of [place], tel: [phone] [address] , [place]. tel: [phone] Mary Bro Encounter for Aug-2 Mariza In Womens suprvsn of normal 1-201 [facility] [place], , second 7 700 PO Box [email or web address] weeks Medical 1522, gestation of [facility], Derik Vargas, 120, [id number], [place], [place], tel:[phone] , [place]. tel: [phone] Mary Bro Spotting Aug-1 Mariza In Womens complicating 7-201 [facility] [place], , second 7 700 PO Box trimesterPlacenta Medical 1522, previa with [facility], hemorrhage, Derik Vargas, second 120, [id number], [email or web address] weeks [place], gestation of [place], tel:+ [phone] [address] , [place]. tel: [phone] [facility] [place] Spotting Aug-1 Mariza In Womens Ultrasound complicating 7-201 [facility] [place], , second 7 700 PO Box trimesterPlacenta Medical 1522, previa with [facility], hemorrhage, Derik Vargas, second 120, [id number], [email or web address] weeks [place], gestation of [place], tel:+ [phone] [address] , [place]. tel: [phone] Mary Bro Placenta previa Dereck-2 Mariza In Womens specified as w/o 4-201 [facility]ena. [facility] [place], hemorrhage, first 7 700 PO Box [email or web address] weeks Medical 1522, gestation of [facility], Derik Vargas, 120, , [place], [place], tel:[phone] , [place]. tel: [phone] Mary Bro Encounter for Dereck-2 Mariza In Womens Ultrasound suprvsn of normal 4-201 Nena. [facility] [place], , second 7 700 PO Box weeks Medical 1522, gestation of [facility] Derik Vargas, 120, , [place], [place], tel:[phone] , [place]. tel: [phone] Mary Bro Encounter for Dereck-1 Mariza In Womens suprvsn of normal 2-201 [facility]ena. [facility] [place], , first 7 700 PO Box [email or web address] weeks Medical 1522, gestation of [facility], Derik Vargas, 120, [id number], [place], [place], tel:[phone] , [place]. tel: [phone] Mary Bro Encounter for Dereck-1 Mariza In Womens Ultrasound suprvsn of normal 2-201 [facility]ena. [facility] [place], , first 7 700 PO Box [email or web address] weeks Medical 1522, gestation of [facility], Derik Vargas, 120, [id number], [place], [place], tel:[phone] , [place]. tel: [phone] Mary Bro Pap Smear Silvestre- Mariza In Womens Screening, [facility], CervixEncounter 7 700 PO Box for suprvsn of Medical 1522, normal , [facility], first [email or web address] Derik Vargas, weeks gestation 120, , [facility] [place], tel: [phone] , [place]. tel: [phone] Family History Family Member Diagnosis Age At [...] older Payers Payer name Insurance type Covered green party ID Authorization(s) [employer] [place] Medicaid MC [id number] [employer] [place] Medicaid MC [id number] [employer] [place] Medicaid MC [id number] Social History Type Description Quantity Date Captured Alcohol Use Details No Caffeine Use Details Unknown Tobacco Use Status Unknown Smoking Status Never smoker Vital Signs Date / Height Weight BMI Pulse Blood Temperature Respiratory Body Head BMI Time: Rate Pressure Rate Surface Circumference percentile Area 182.50 35.0 / lbs 5 mm[Hg] 10:19 kg/m AM eter (2) Chief Complaint And [...] Future Order: Radiology Order Ultrasound OB Follow-up ([id number]) Ordered Future Order: Radiology Order Biophysical Profile without NST Ordered ([id number]) Future Order: Radiology Order Biophysical Profile without NST Ordered ([id number]) Future Order: Radiology Order Complete OB Ultrasound > 14 Ordered Weeks ([id number]) Future Order: Radiology Order Ultrasound, OB Limited ([id number]) Ordered Future Order: Radiology Order Biophysical Profile without NST Ordered ([id number]) Future Order: Radiology Order Ultrasound < 14 wks ([id number]) Ordered Future Order: Radiology Order Nuchal Translucency ([id number]) Ordered Date Type Problem Goal Intervention Status [...]
--- OUTSIDE RECORDS SUMMARY | 2017-06-14 08:03 | External Medical Summary | Continuity of Care Document ---
:1985 Author Organization [facility] Address [address] [place], [place] [id number] Phone Care Team Providers Name Role Phone [facility] Unavailable Unavailable Allergies, Adverse Reactions, Alerts [...] Effective Dates (start - stop) Clinical Status Abnormal hematolog finding on - screening of mother Encounter for suprvsn of normal - , third trimester 31 weeks gestation of - Pap Smear Screening, [...] third trimester 34 weeks gestation of - Placenta previa specified [...] Mariza In Womens complicating 0-201 Nena. Health [place], , third 7 700 [address] [facility] 1522, r for suprvsn of [facility], normal , Derik Vargas, third [email or web address] 120, [id number], weeks gestation [place], [place] of [place], tel:[phone] , [place]. tel: [phone] Mary Bro Spotting Dec-2 Mariza In Womens Ultrasound complicating 0-201 Nena. Health [place], , third 7 700 PO Box trimesterAbnormwi Medical 1522, hematolog finding [facility] [place], on Derik Vargas, screening of 120, [id number], weeks Bro, [place] gestation of [place], tel:+ [phone] , [place]. tel: [phone] Mary Bro Supervision of Dec-1 Sobbing Referring In Womens other high risk 1-201 Sen. Provider: Health [place], pregnancies, 7 700 Nena [address] Box third Medical Mariza L, 1522, [facility] [address], hematolog finding [facility], on Suite Center , screening of 120, Derik 120, [place] motherEncounter Dieudonne [place], tel:[phone] [place], [place] , [id number], [id number]. third [email or web address] [place]. tel:+ weeks gestation tel: [phone] of [phone] Mary Bro Supervision of Dec-1 Mariza In Womens Ultrasound other high risk 1-201 Nena. Health [place], pregnancies, 7 700 PO Box third Medical 1522, trimesterSpotting Center [place], complicating Derik Vargas, , third 120, [id number], trimesterAbnormal Bro, [place] hematolog finding [place], tel: on [phone] screening of , [place]. weeks tel:+07-04 gestation of [phone] Associates Dieudonne Spotting Dec-0 Mariza In Womens complicating 6-201 Nena. Health [place], , third 7 700 PO Box trimesterAbnormal Medical 1522, hematolog finding [facility], on Derik Vargas, screening of 120, [id number], [email or web address] weeks Bro, [place] gestation of [place], tel: [phone] , [place]. tel: [phone] Mary Bro Supervision of Dec-0 Mariza In Womens Ultrasound other high risk 6-201 Nena. Health [place], pregnancies, 7 700 PO Box third Medical 1522, trimesterSpotting [facility], complicating Derik Vargas, , third 120, [id number], trimesterAbnormal Bro, [place] hematolog finding [place], tel:+ on [phone] screening of , [place]. [email or web address] weeks tel: gestation of [phone] Associates Dieudonne Abnormal Nov-3 Mariza In Womens hematolog finding 0-201 Nena. Health [place], on 7 700 PO Box screening of Medical 1522, motherEncounter [facility], for suprvsn of Derik Vargas, normal , 120, [id number], third [email or web address] Bro, [place] weeks gestation [place], tel:+ [phone] , [place]. tel: [phone] Mary Bro Encounter for Nov-0 Mariza In Womens suprvsn of normal 8-201 Nena. Health [place], , third 7 700 PO Box [email or web address] weeks Medical 1522, gestation of [facility], Derik Vargas, 120, [id number], [place], [place], tel:[phone] , [place]. tel: [phone] Mary Bro Spotting Oct-1 Mariza Referring In Womens complicating 1-201 Nena. Provider: Health [place], , second 7 700 Nena [facility] Mar[facility] L, 1522, r for suprvsn of [address], normal , Derik Vargas, second 120, Center [id number], [email or web address] weeks Dieudonne Derik 120, [place] gestation of [place], [place], tel: [place], , [place]. [id number]. tel: tel: [phone] Mary Bro Encounter for Sep-0 Mariza In Womens suprvsn of normal 6-201 Nena. Health [place], , second 7 700 PO Box [email or web address] weeks Medical 1522, gestation of [facility], Derik Vargas, 120, , [place], [place], tel:[phone] , [place]. tel: [phone] Mary Bro Spotting Sep-0 Mariza In Womens Ultrasound complicating 6-201 Nena. Health [place], , second 7 700 PO [facility] 1522, r for suprvsn of [facility], normal , Derik Vargas, second 120, [id number], [email or web address] weeks [place], [place] gestation of [place], tel: [phone] , [place]. tel: [phone] Mary Bro Encounter for Aug-2 Mariza In Womens suprvsn of normal 1-201 Nena. Health [place], , second 7 700 PO Box [email or web address] weeks Medical 1522, gestation of [facility], Derik Vargas, 120, [id number], [place], [place], tel:[phone] , [place]. tel: [phone] Mary Bro Spotting Aug-1 Mariza In Womens complicating 7-201 Nena. Health [place], , second 7 700 PO Box trimesterPlacenta Medical 1522, previa with [facility], hemorrhage, Derik Vargas, second 120, [id number], [email or web address] weeks Bro, gestation of [place], tel:+ [phone] , [place]. tel: [phone] Associates Dieudonne Spotting Aug-1 Mariza In Womens Ultrasound complicating 7-201 Nena. Health [place], , second 7 700 PO Box trimesterPlacenta Medical 1522, previa with [facility], hemorrhage, Derik Vargas, second 120, [id number], [email or web address] weeks Bro, gestation of [place], tel:+ [phone] , [place]. tel: [phone] Mary Bro Placenta previa Dereck-2 Mariza In Womens specified as w/o 4-201 Nena. Health [place], hemorrhage, first 7 700 PO Box [email or web address] weeks Medical 1522, gestation of [facility], Derik Vargas, 120, , [place], [place], tel:[phone] , [place]. tel: [phone] Mary Bro Encounter for Dereck-2 Mariza In Womens Ultrasound suprvsn of normal 4-201 Nena. Health [place], , second 7 700 PO Box [email or web address] weeks Medical 1522, gestation of [facility] Derik Vargas, 120, , [place], [place], tel:[phone] , [place]. tel: [phone] Mary Bro Encounter for Dereck-1 Mariza In Womens suprvsn of normal 2-201 Nena. Health [place], , first 7 700 PO Box [email or web address] weeks Medical 1522, gestation of [facility], Derik Vargas, 120, [id number], [place], [place], tel:[phone] , [place]. tel: [phone] Mary Bro Encounter for Dereck-1 Mariza In Womens Ultrasound suprvsn of normal 2-201 Nena. Health [place], , first 7 700 PO Box [email or web address] weeks Medical 1522, gestation of [facility], Derik Vargas, 120, [id number], [place], [place], tel:[phone] , [place]. tel: [phone] Mary Bro Pap Smear Mariza In Womens Screening, [facility], CervixEncounter 7 700 PO Box for suprvsn of Medical 1522, normal , [facility], first [email or web address] Derik Vargas, weeks gestation 120, , [facility] [place], tel:[phone] , [place]. tel: [phone] Family History Family Member Diagnosis Age At [...] [place] - Medicaid MC [id number] [place] Medicaid MC [id number] [place] - Medicaid MC [id number] Social History Type Description Quantity Date Captured Alcohol Use Details No Caffeine Use Details coffee 1 cup per day Tobacco Use Status Never smoked tobacco Smoking Status Never smoker Vital Signs Date / Height Weight BMI Pulse Blood Temperature Respiratory Body Head BMI Time: Rate Pressure Rate Surface Circumference percentile Area 33. 9 4:14 kg/m PM eter (2) 182.10 34.9 124/76 2017 lbs 8 mm[Hg] 4:19 kg/m PM eter (2) Chief Complaint And Reason For Visit Unknown Chief Complaint And Reason For Visit Reason For Referral Reason For Referral Unknown Plan Of Care Date Type Action Status Appointment Zenon, Lori BOOKED Appointment Zenon, Angela BOOKED Appointment Zenon, Angela BOOKED Appointment Zenon, Angela BOOKED Appointment Zenon, Angela BOOKED Appointment Angela Yarbrough BOOKED Appointment Angela Yarbrough BOOKED Appointment Zneon Angela BOOKED Appointment Zenon Angela BOOKED Appointment Zenon, Lori BOOKED Future Order: Radiology Order Ultrasound OB Follow-up ([id number]) Ordered Future Order: Radiology Order Biophysical Profile without NST Ordered ([id number]) Future Order: Radiology Order Biophysical Profile without NST Ordered ([id number]) Future Order: Radiology Order Complete OB Ultrasound > 14 Ordered Weeks ([id number]) Future Order: Radiology Order Ultrasound, OB Limited ([id number]) Ordered Future Order: Radiology Order Biophysical Profile without NST Ordered ([id number]) Future Order: Radiology Order Ultrasound < 14 wks ([id number]) Ordered Future Order: Radiology Order Nuchal Translucency ([id number]) Ordered Date Type Problem Goal Intervention Status [...]
--- OUTSIDE RECORDS SUMMARY | 2017-06-14 08:03 | External Medical Summary | Continuity of Care Document ---
:1987 Author Organization [facility] Address [address] [place], [place] [id number] Phone Care Team Providers Name Role Phone [facility] Unavailable Unavailable Allergies, Adverse Reactions, Alerts [...] second trimester 19 weeks gestation of - Pap Smear Screening, Cervix - 10 weeks gestation of - Encounter for suprvsn of normal - , first trimester Spotting complicating , - second trimester Encounter [...] first trimester 12 weeks gestation of - 12 weeks gestation of - Encounter for suprvsn of normal - , first trimester Encounter for suprvsn of normal - [...] Description For Visit Team Members Mary Bro Encounter for Sep-0 Mariza In Womens suprvsn of normal 6-201 Nena. Health [place], , second 7 700 PO Box [email or web address] weeks Medical 1522, gestation of [facility], Derik Vargas, 120, [id number], [facility] [place], tel:[phone] , [place]. tel:[phone] Mary Bro Spotting Sep-0 Mariza In Womens Ultrasound complicating 6-201 Nena. Health [place], , second 7 700 PO Box trimesterEncounter Medical 1522, for suprvsn of [facility], normal , Derik Vargas, second [email or web address] 120, [id number], weeks gestation of [facility] [place], tel:[phone] , [place]. tel:[phone] Mary Bro Encounter for Aug-2 Mariza In Womens suprvsn of normal 1-201 Nena. [facility] [place], , second 7 700 PO Box [email or web address] weeks Medical 1522, gestation of [facility], Derik Vargas, 120, [id number], [facility] [place], tel:[phone] , [place]. tel:[phone] Mary Bro Spotting Aug-1 Mariza In Womens complicating 7-201 Nena. Health [place], , second 7 700 PO Box trimesterPlacenta Medical 1522, previa with [facility] [place], hemorrhage, second Derik Vargas, [email or web address] weeks 120, , gestation of [place], [place], tel:[phone] , [place]. tel: [phone] Associates Dieudonne Spotting Aug-1 Mariza In Womens Ultrasound complicating 7-201 Nena. Health [place], , second 7 700 PO Box trimesterPlacenta Medical 1522, previa with [facility] [place], hemorrhage, second Derik Vargas, [email or web address] weeks 120, , gestation of [place], [place], tel:[phone] [address] , [place]. tel: [phone] Mary Bro Placenta previa Dereck-2 Mariza In Womens specified as w/o 4-201 Nena. Health [place], hemorrhage, first 7 700 PO Box [email or web address] weeks Medical 1522, gestation of [facility], Derik Vargas, 120, , [place], [place], tel:[phone] [address] , [place]. tel: [phone] Mary Bro Encounter for Dereck-2 Mariza In Womens Ultrasound suprvsn of normal 4-201 Nena. Health [place], , second 7 700 PO Box [email or web address] weeks Medical 1522, gestation of [facility], Derik Vargas, 120, , [place], [place], tel:[phone] , [place]. tel: [phone] Mary Bro 12 weeks gestation Dereck-1 Mariza In Womens of 2-201 Nena. Health [place], pregnancyEncounter 7 700 PO Box for suprvsn of Medical 1522, normal , [facility], first trimester Derik Vargas, 120, , [place], [place], tel:[phone] , [place]. tel: [phone] Mary Bro Encounter for Dereck-1 Mariza In Womens Ultrasound suprvsn of normal 2-201 Nena. Health [place], , first 7 700 PO Box [email or web address] weeks Medical 1522, gestation of [facility], Derik Vargas, 120, [id number], [place], [place], tel:[phone] , [place]. tel: [phone] Mary Bro Pap Smear Silvestre- Mariza In Womens Screening, [email or web address] 6-201 Nena. [facility] [place], weeks gestation of 7 700 PO [facility] 1522, for suprvsn of [facility], normal , Derik Vargas, first trimester 120, [id number], [place], [place], tel:[phone] , [place]. tel: [phone] Family History Family Member Diagnosis Age At [...] [employer] [place] [employer] [place] - Medicaid MC [id number] Social History Type Description Quantity Date Captured [...] Complete OB Ultrasound > 14 Ordered Weeks ([id number]) Future Order: Radiology Order Ultrasound, OB Limited ([id number]) Ordered Future Order: Radiology Order Ultrasound < 14 wks ([id number]) Ordered Future Order: Radiology Order Nuchal Translucency ([id number]) Ordered Date Type Problem Goal Intervention Status [...]
--- OUTSIDE RECORDS SUMMARY | 2017-06-14 08:03 | External Medical Summary | Continuity of Care Document ---
:1987 Author Organization [facility] Address [address] [place], [place] [address] Phone Care Team Providers Name Role Phone [facility] Unavailable Unavailable Allergies, Adverse Reactions, [...] gestation of - Procedures Procedure Date OB US < 14 WKS, SINGLE FETUS Results Test Name Date and Time Measure Units Reference Range Abnormal Flag Comments Unknown Advance Directives Directive Yes / No Effective Date File Name Unknown Encounters Encounter Practice Location Reason(s) Diagnoses Date Provider Care Description For Visit Team Members Mary Bro Placenta previa Dereck-2 Mariza In Womens specified as w/o 4-201 Nena. Health [facility], hemorrhage, 7 [address], first [place], [email or web address] Center [id number], weeks gestation Derik Vargas [place] of 120, tel:[phone] [place] [address], [id number] , [place]. tel: [phone] Mary Bro Encounter for Dereck-2 Mariza In Womens Ultrasound suprvsn of 4-201 Nena. Health LIONEL, normal 7 [address], , [place], second Center [id number], [email or web address] Derik Vargas [place] weeks gestation 120, tel:[phone] of Dieudonne [address] [place] [address], [id number] , [place]. tel: [phone] Mary Bro Encounter for Dereck-1 Mariza In Womens suprvsn of 2-201 Nena. Health LIONEL, normal 7 700 [address], , first [place], [id number] Center [id number], weeks gestation Derik Vargas [place] of 120, tel:[phone] Dieudonne [address] [place] [address], [id number] , [place]. tel: [phone] Mary Bro Encounter for Dereck-1 Mariza In Womens Ultrasound suprvsn of 2-201 Nena. [facility], normal 7 [address], , first [place], [id number] Center [id number], weeks gestation Derik Vargas [place] of 120, tel:[phone] Dieudonne [address] [place] [address], [id number] , [place]. tel: [phone] Mary Bro Pap Smear Silvestre-2 Mariza In Womens Screening, 6-201 Nena. Health LIONEL, CervixEncounter 7 700 [address], for suprvsn of [place], normal Center [id number], , first Derik Vargas [place] [email or web address] 120, tel:[phone] weeks gestation Dieudonne, [address] of [place], [id number] , [place]. tel: [phone] Family History Family Member Diagnosis Age At [...] [employer] - Medicaid MC [id number] Social History Type Description Quantity Date Captured [...] Order: Radiology Order Ultrasound < 14 wks ([id number]) Ordered Future Order: Radiology Order Nuchal Translucency ([id number]) Ordered Date Type Problem Goal Intervention Status [...]
--- OUTSIDE RECORDS SUMMARY | 2017-06-14 08:03 | External Medical Summary | Continuity of Care Document ---
:1987 Author Organization [facility] Address [address] [place], [place] [address] Phone Care Team Providers Name Role Phone [facility] Unavailable Unavailable Allergies, Adverse Reactions, Alerts Substance [...] weeks gestation of - Procedures Procedure Date Ultrasnd preg uterus, flwup/repeat biophys prfl w/o nstress test Results Test Name Date and Time Measure Units Reference Range Abnormal Flag Comments Unknown Advance Directives Directive Yes / No Effective Date File Name Unknown Encounters Encounter Practice Location Reason(s) Diagnoses Date Provider Care Team Description For Visit Members Mary Bro Spotting Dec-2 Mariza In Womens complicating 0-201 Nena. Health [facility]IONEL, , third 7 700 [address] [employer] 1522, r for suprvsn of [facility], normal , Derik Vargas, third [email or web address] 120, [id number], weeks gestation Bro, [place] of [place], tel:[phone] , [place]. tel: [phone] Mary Bro Spotting Dec-2 Mariza In Womens Ultrasound complicating 0-201 Nena. Health LIONEL, , third 7 700 PO Box [facility] 1522, hematolog finding [facility], on Derik Vargas, screening of 120, [id number], [email or web address] weeks Bro, [place] gestation of [place], tel:[phone] , [place]. tel: [phone] Mary Bro Supervision of Dec-1 Sobbing Referring In Womens other high risk 1-201 Sen. Provider: Health LIONEL, pregnancies, 7 700 Nena [address] Box third Medical Mariza L, 1522, trimesterAbnormal Center [address] [place] [address], hematolog finding [facility] [place], on Suite Center , screening of 120, Derik 120, US motherEncounter Dieudonne Bro, tel:+ for suprvsn [place], normal , [address], [id number]. third [email or web address] [place]. tel: weeks gestation tel: [phone] of [phone] Mary Bro Supervision of Dec-1 Mariza In Womens Ultrasound other high risk 1-201 Nena. Health [place], pregnancies, 7 700 PO Box third Medical 1522, trimesterSpotting [facility] [place], complicating Derik Vargas, , third 120, [id number], trimesterAbnormal Bro, [place] hematolog finding [place], tel: on [phone] screening of , [place]. [email or web address] weeks tel: gestation of [phone] Associates Dieudonne Spotting Dec-0 Mariza In Womens complicating 6-201 Nena. Health [place], , third 7 700 PO Box trimesterAbnormal Medical 1522, hematolog finding [facility] [place], on Derik Vargas, screening of 120, [id number], [email or web address] weeks Bro, [place] gestation of [place], tel: [phone] [address] , [place]. tel: [phone] Mary Bro Supervision of Dec-0 Mariza In Womens Ultrasound other high risk 6-201 Nena. Health [place], pregnancies, 7 700 PO Box third Medical 1522, trimesterSpotting [facility] [place], complicating Derik Vargas, , third 120, [id number], trimesterAbnormal Bro, [place] hematolog finding [place], tel: on [phone] screening of , [place]. [email or web address] weeks tel:+[phone] gestation of [phone] Associates Dieudonne Abnormal Nov-3 Mariza In Womens hematolog finding 0-201 Nena. Health [place], on 7 700 PO Box screening of Medical 1522, motherEncounter [facility] [place], for suprvsn of Derik Vargas, normal , 120, [id number], third [email or web address] Bro, [place] weeks gestation [place], tel: of [phone] [address] , [place]. tel: [phone] Mary Bro Encounter for Nov-0 Mariza In Womens suprvsn of normal 8-201 Nena. Health [place], , third 7 700 PO Box [email or web address] weeks Medical 1522, gestation of [facility], Derik Vargas, 120, [id number], [place], [place], tel:[phone] , [place]. tel: [phone] Mary Bro Spotting Oct-1 Mariza Referring In Womens complicating 1-201 Nena. Provider: Health [place], , second 7 700 Nena PO Box trimesterEncounte Medical Mariza L, 1522, r for suprvsn of [address], normal , Derik Vargas, second 120, Center [id number], [email or web address] weeks Dieudonne [facility] 120, [place] gestation of [place], [place], tel: [phone] [place], , [place]. [id number]. tel: tel: [phone] Mary Bro Encounter for Sep-0 Mariza In Womens suprvsn of normal 6-201 Nena. Health [place], , second 7 700 PO Box [email or web address] weeks Medical 1522, gestation of [facility], Derik Vargas, 120, [id number], [place], [place], tel:[phone] , [place]. tel: [phone] Mayr Bro Spotting Sep-0 Mariza In Womens Ultrasound complicating 6-201 Nena. Health [place], , second 7 700 PO Box trimesterEncounte Medical 1522, r for suprvsn of [facility], normal , Derik Vargas, second 120, [id number], weeks Bro, gestation of [place], tel: [phone] , [place]. tel: [phone] Mary Bro Encounter for Aug-2 Mariza In Womens suprvsn of normal 1-201 Nena. Health [place], , second 7 700 PO Box [email or web address] weeks Medical 1522, gestation of [facility], Derik Vargas, 120, [id number], [place], [place], tel:[phone] , [place]. tel: [phone] Mary Bro Spotting Aug-1 Mariza In Womens complicating 7-201 Nena. Health [place], , second 7 700 PO Box trimesterPlacenta Medical 1522, previa with [facility], hemorrhage, Derik Vargas, second 120, [id number], [email or web address] weeks Bro, [place] gestation of [place], tel:[phone] , [place]. tel: [phone] Mary Bro Spotting Aug-1 Mariza In Womens Ultrasound complicating 7-201 Nena. Health [place], , second 7 700 PO Box trimesterPlacenta Medical 1522, previa with [facility], hemorrhage, Derik Vargas, second 120, [id number], [email or web address] weeks Bro, gestation of [place], tel:+ [phone] [address] , [place]. tel: [phone] Mary Bro Placenta previa Dereck-2 Mariza In Womens specified as w/o 4-201 Nena. Health [place], hemorrhage, first 7 700 PO Box [email or web address] weeks Medical 1522, gestation of [facility], Derik Vargas, 120, , [place], [place], tel:[phone] , [place]. tel: [phone] Mary rBo Encounter for Dereck-2 Mariza In Womens Ultrasound suprvsn of normal 4-201 Nena. Health [place], , second 7 700 PO Box [email or web address] weeks Medical 1522, gestation of [facility], Derik Vargas, 120, , [place], [place], tel:[phone] , [place]. tel: [phone] Mary Bro Encounter for Dereck-1 Mariza In Womens suprvsn of normal 2-201 Nena. Health [place], , first 7 700 PO Box [email or web address] weeks Medical 1522, gestation of [facility], Derik Vargas, 120, [id number], Bro, [place], tel:[phone] , [place]. tel: [phone] Mary Bro Encounter for Dereck-1 Mariza In Womens Ultrasound suprvsn of normal 2-201 Nena. Health [place], , first 7 700 PO Box weeks Medical 1522, gestation of [facility], Derik Vargas, 120, [id number], [facility] [place], tel:[phone] [address] , [place]. tel: [phone] Mary Bro Pap Smear Silvestre- Mariza In Womens Screening, 6-201 Nena. Health [place], CervixEncounter 7 700 PO Box for suprvsn of Medical 1522, normal , [facility], first [email or web address] Derik Vargas, weeks gestation 120, [id number], [facility] [place], tel:[phone] , [place]. tel: [phone] Family History Family Member Diagnosis Age At [...] older Payers Payer name Insurance type Covered republican ID Authorization(s) [place] Medicaid MC [id number] [place] Medicaid MC [id number] [place] Medicaid MC [id number] Social History Type Description Quantity Date Captured [...] Yarbrough BOOKED Appointment Angela Yarbrough BOOKED Appointment Anegla Yarbrough BOOKED Appointment Angela Yarbrough BOOKED Appointment Angela Yarbrough BOOKED Appointment Angela Yarbrough BOOKED Future Order: Radiology Order Ultrasound OB Follow-up ([id number]) Ordered Future Order: Radiology Order Biophysical Profile without NST Ordered ([id number]) Future Order: Radiology Order Biophysical Profile without NST Ordered ([id number]) Future Order: Radiology Order Complete OB Ultrasound > 14 Ordered Weeks ([id number]) Future Order: Radiology Order Ultrasound, OB Limited ([id number]) Ordered Future Order: Radiology Order Biophysical Profile without NST Ordered ([id number]) Future Order: Radiology Order Ultrasound < 14 wks ([id number]) Ordered Future Order: Radiology Order Nuchal Translucency ([id number]) Ordered Date Type Problem Goal Intervention Status [...]
--- OUTSIDE RECORDS SUMMARY | 2017-06-14 08:03 | External Medical Summary | Continuity of Care Document ---
:1985 Author Organization [facility] [employer] [facility] Address [address] [place], [place] [id number] Phone Care Team Providers Name Role Phone [facility] Unavailable Unavailable Allergies, Adverse Reactions, Alerts Substance [...] ORAL route every 4 days as needed Tums 200 mg chew 1 - 2 Tablet by Not Available - Active calcium (500 mg) Oral route every chewable tablet day Benadryl 25 mg take 1 capsule by - Active capsule oral route every 4 hours as needed Problems Condition Effective Dates (start - stop) Clinical Status Supervision of other high risk - pregnancies, third trimester Abnormal hematolog finding on - screening of mother Encounter for suprvsn of normal - , third trimester 32 weeks gestation of - Pap Smear [...] weeks gestation of - Procedures Procedure Date Immuniz admnin, 1 vac, sngl/combo 19 Yrs + TDAP VACCINE >7 IM OB Visit No Charge - LINE SERVICE PERSON Results Test Name Date and Time Measure Units Reference Range Abnormal Flag Comments Unknown Advance Directives Directive Yes / No Effective Date File Name Unknown Encounters Encounter Practice Location Reason(s) Diagnoses Date Provider Care Team Description For Visit Members Mary Bro Supervision of Mariza In Womens other high risk 7-201 [facility], pregnancies, 7 700 [address] third Medical 1522, trimesterAbnoal [facility], hematolog finding Derik Vargas, on 120, [id number], screening of [place] mother[place], tel:[phone] ios, third [phone] trimester, not , [place]. applicable or tel: [email or web address] weeks [phone] gestation of Mary Bro Supervision of Dec-2 [facility] In Womens other high risk 7-201 [facility] [place], pregnancies, 7 700 PO Box third Medical 1522, trimesterAbnormal [facility] [place], hematolog finding Derik Vargas, on 120, [id number], screening of [place], [place] mother[place]hydramn [place], tel:+ ios, third [phone] trimester, not , [place]. applicable or tel: [email or web address] weeks [phone] gestation of [facility] [place] Abnormal Dec-2 [facility] In Womens Ultrasound hematolog finding 7-201 Nena. [facility] LIONEL, on 7 700 PO Box screening of Medical 1522, motherPolyhydramn [facility], ios, third Derik Vargas, trimester, not 120, [id number], applicable or [place], [place] [email or web address] weeks [place], tel:+ gestation [phone] , [place]. tel: [phone] [facility] [place] Spotting Dec-2 [facility] In Womens complicating 0-201 [facility], , third 7 700 PO [facility] 1522, r for suprvsn of [facility], normal , Derik Vargas, third [email or web address] 120, [id number], weeks gestation [place], [place] of [place], tel:[phone] , [place]. tel: [phone] [facility] [place] Spotting Dec-2 [facility] In [facility]omens Ultrasound complicating 0-201 [facility] [place], , third 7 700 PO Box trimesterAbnormal Medical 1522, hematolog finding [facility], on Derik Vargas, screening of 120, [id number], [email or web address] weeks [place], [place] gestation of [place], tel:[phone] , [place]. tel: [phone] [facility] [place] Supervision of Dec-1 Sobbing Referring In Womens other high risk 1-201 Sen. Provider: Health LIONEL, pregnancies, 7 700 Nena [address] third Medical Mariza L, 1522, trimesterAbnormal Center [address] [place] [address], hematolog finding [facility], [facility] [place], on Suite Center , screening of 120, Derik 120, [place] [facility] cent[facility] [place] rBo, tel: for suprvsn of [place], [place], normal , [id number], [id number]. third [id number] [place]. tel: weeks gestation tel: [phone] Mary Bro Supervision of Dec-1 [facility]om[facility] Ultrasound other high risk 1-201 [facility] [place], pregnancies, 7 700 PO Box third Medical 1522, trimesterSpotting [facility] [place], complicating Derik Vargas, , third 120, [id number], trimesterAbnormal [place], [place] hematolog finding [place], tel: on [phone] screening of , [place]. [email or web address] weeks tel: gestation of [phone] [facility] [place] Spotting Dec-0 [facility] In Womens complicating 6-201 [facility] [place], , third 7 700 PO Box trimesterAbnormal Medical 1522, hematolog finding [facility] [place], on Derik Vargas, screening of 120, [id number], weeks [place], [place] gestation of [place], tel: , [place]. tel: [phone] Mary Bro Supervision of Dec-0 [facility]om[facility] Ultrasound other high risk 6-201 [facility], pregnancies, 7 700 PO Box third Medical 1522, trimesterSpotting [facility] [place], complicating Derik Vargas, , third 120, [id number], trimesterAbnormal [place], [place] hematolog finding [place], tel: on [phone] screening of , [place]. [email or web address] weeks tel: gestation of [phone] [facility] [place] Abnormal Nov-3 [facility] In Womens hematolog finding 0-201 [facility], on 7 700 PO Box screening of Medical 1522, [facility], for suprvsn of Derik Vargas, normal , 120, [id number], third [email or web address] [place], [place] weeks gestation [place], tel: of [phone] , [place]. tel: [phone] Mary Bro Encounter for Nov-0 [facility] In Womens suprvsn of normal 8-201 [facility] [place], , third 7 700 PO Box [email or web address] weeks Medical 1522, gestation of [facility], Derik Vargas, 120, [id number], [place], [place], tel: [phone] , [place]. tel: [phone] Mary Bro Spotting Oct-1 Mariza Referring In Womens complicating 1-201 Nena. Provider: Health PA, , second 7 700 Nena PO Box [facility] Medical Mariza L, 1522, r for suprvsn of [address], normal , Derik Vargas, second 120, Center , [email or web address] weeks [place] Derik 120, [place] gestation of [place], [place], tel: [phone] [place], , [place]. [id number]. tel: tel: [phone] Mary Bro Encounter for Sep-0 [facility] In Womens suprvsn of normal 6-201 [facility] [place], , second 7 700 PO Box [email or web address] weeks Medical 1522, gestation of [facility], Derik Vargas, 120, , [place], [place], tel:[phone] , [place]. tel: [phone] Mary Bro Spotting Sep-0 [facility] In Womens Ultrasound complicating 6-201 [facility] [place], , second 7 700 PO Box [facility]En[facility]addle[facility] Medical 1522, r for suprvsn of [facility], normal , Derik Vargas, second 120, [id number], [email or web address] weeks [place], [place] gestation of [place], tel: [phone] , [place]. tel: [phone] Mary Bro Encounter for Aug-2 [facility] In Womens suprvsn of normal 1-201 [facility] [place], , second 7 700 PO Box [email or web address] weeks Medical 1522, gestation of [facility], Derik Vargas, 120, [id number], [place], [place], tel: [phone] , [place]. tel: [phone] Mary Bro Spotting Aug-1 Mariza In Womens complicating 7-201 [facility] [place], , second 7 700 PO Box trimesterPlacenta Medical 1522, previa with [facility] [place], hemorrhage, Derik Vargas, second 120, [id number], [email or web address] weeks [place], gestation of [place], tel:+ [phone] , [place]. tel: [phone] Mary Bro Spotting Aug-1 [facility] In Womens Ultrasound complicating 7-201 [facility] [place], , second 7 700 PO Box trimesterPlacenta Medical 1522, previa with [facility], hemorrhage, Derik Vargas, second 120, [id number], [email or web address] weeks [place], gestation of [place], tel:+ [phone] , [place]. tel: [phone] Mary Bro Placenta previa Dereck-2 Mariza In Womens specified as w/o 4-201 [facility], hemorrhage, first 7 700 PO Box [email or web address] weeks Medical 1522, gestation of [facility], Derik Vargas, 120, [id number], [place], [place], tel:[phone] , [place]. tel: [phone] Mary Bro Encounter for Dereck-2 [facility] In Womens Ultrasound suprvsn of normal 4-201 [facility], , second 7 700 PO Box [email or web address] weeks Medical 1522, gestation of [facility], Derik Vargas, 120, [id number], [place], [place], tel:[phone] , [place]. tel: [phone] Mary Bro Encounter for Dereck-1 Mar[facility] In Womens suprvsn of normal 2-201 [facility], , first 7 700 PO Box [email or web address] weeks Medical 1522, gestation of [facility], Derik Vargas, 120, [id number], [place], [place], tel:[phone] , [place]. tel: [phone] Mary Bro Encounter for Dereck-1 [facility] In Women Ultrasound suprvsn of normal 2-201 [facility], , first 7 700 PO Box [email or web address] weeks Medical 1522, gestation of [facility], Derik Vargas, 120, [id number], [place], [place], tel:+ [phone] , [place]. tel: [phone] Mary Bro Pap Smear Mariza In Women Screening, 6-201 [facility], CervixEncounter 7 700 PO Box for suprvsn of Medical 1522, normal , [facility], first [email or web address] Derik Vargas, weeks gestation 120, , [facility] [place], tel:[phone] , [place]. tel: [phone] Family History Family Member Diagnosis Age At [...] [employer] [place] Medicaid [place] [id number] [place] [place] MC [id number] [employer] [place] Medicaid MC [id number] Social History Type Description Quantity Date Captured [...] Future Order: Radiology Order Ultrasound OB Follow-up ([id number]) Ordered Future Order: Radiology Order Biophysical Profile without NST Ordered ([id number]) Future Order: Radiology Order Biophysical Profile without NST Ordered ([id number]) Future Order: Radiology Order Complete OB Ultrasound > 14 Ordered Weeks ([id number]) Future Order: Radiology Order Ultrasound, OB Limited ([id number]) Ordered Future Order: Radiology Order Biophysical Profile without NST Ordered ([id number]) Future Order: Radiology Order Biophysical Profile without NST Ordered ([id number]) Future Order: Radiology Order Biophysical Profile without NST Ordered ([id number]) Future Order: Radiology Order Ultrasound < 14 wks ([id number]) Ordered Future Order: Radiology Order Nuchal Translucency ([id number]) Ordered Date Type Problem Goal Intervention Status [...]
--- OUTSIDE RECORDS SUMMARY | 2017-06-14 08:03 | External Medical Summary | Continuity of Care Document ---
:1987 Author Organization [facility] [facility] Address [address] [place], [place] [id number] Phone Care Team Providers Name Role Phone [facility] Unavailable Unavailable Allergies, Adverse [...] Status Spotting complicating , - second trimester Encounter for suprvsn of normal - , second trimester 19 weeks gestation of - Pap Smear Screening, Cervix - 10 weeks gestation of - Encounter for suprvsn of normal - , first trimester Spotting complicating , - second trimester Placenta [...] weeks gestation of - Procedures Procedure Date Ultrasound exam of preg uterus, complete Results Test Name Date and Time Measure Units Reference Range Abnormal Flag Comments Unknown Advance Directives Directive Yes / No Effective Date File Name Unknown Encounters Encounter Practice Location Reason(s) Diagnoses Date Provider Care Description For Visit Team Members [facility] Encounter for Sep-0 [facility] In Womens suprvsn of normal 6-201 [facility]. [facility] [place], , second 7 700 PO Box weeks Medical 1522, gestation of [facility], Derik Vargas, 120, [id number], [place], [place], tel:[phone] , [place]. tel:[phone] Mary Bro Spotting Sep-0 [facility] In Womens Ultrasound complicating 6-201 [facility] [place], , second 7 700 PO Box trimesterEncounter Medical 1522, for suprvsn of [facility], normal , Derik Vargas, second [email or web address] 120, [id number], weeks gestation of [facility] [place], tel:[phone] , [place]. tel:[phone] [facility] Encounter for Aug-2 Mariza In Womens suprvsn of normal 1-201 [facility], , second 7 700 PO Box [email or web address] weeks Medical 1522, gestation of [facility], Derik Vargas, 120, [id number], [place], [place], tel:[phone] , [place]. tel:[phone] Mary Bro Spotting Aug-1 Mariza In Womens complicating 7-201 [facility], , second 7 700 PO Box trimesterPlacenta Medical 1522, previa with [facility] [place], hemorrhage, second Derik Vargas, [email or web address] weeks 120, [id number], gestation of [place], [place], tel:[phone] , [place]. tel: [phone] [facility] Spotting Aug-1 [facility] In Womens Ultrasound complicating 7-201 [facility], , second 7 700 PO Box trimesterPlacenta Medical 1522, previa with [facility] [place], hemorrhage, second Derik Vargas, [email or web address] weeks 120, , gestation of [place], [place], tel:[phone] , [place]. tel: [phone] [facility] Placenta previa Dereck-2 Mariza In Womens specified as w/o 4-201 [facility], hemorrhage, first 7 700 PO Box [email or web address] weeks Medical 1522, gestation of [facility], Derik Vargas, 120, , [place], [place], tel:[phone] , [place]. tel: [phone] Mary Bro Encounter for Dereck-2 [facility] In Womens Ultrasound suprvsn of normal 4-201 Nena. [facility], , second 7 700 PO Box [email or web address] weeks Medical 1522, gestation of [facility], Derik Vargas, 120, , [place], [place], tel:[phone] , [place]. tel: [phone] Mary Bro 12 weeks gestation Dereck-1 Mariza In Womens of 2-201 [facility], pregnancyEncounter 7 700 PO Box for suprvsn of Medical 1522, normal , [facility], first trimester Derik Vargas, 120, [id number], [place], [place], tel:[phone] , [place]. tel: [phone] Mary Bro Encounter for Dereck-1 [facility] In Womens Ultrasound suprvsn of normal 2-201 [facility], , first 7 700 PO Box [email or web address] weeks Medical 1522, gestation of [facility], Derik Vargas, 120, [id number], [place], [place], tel:[phone] , [place]. tel: [phone] Mary Bro Pap Smear Silvestre- Mariza In Womens Screening, [id number] 6-201 Nena. [facility], weeks gestation of 7 700 PO Box pregnancyEncounter Medical 1522, for suprvsn of [facility], normal , Derik Vargas, first trimester 120, [id number], [place], [place], tel:[phone] , [place]. tel: [phone] Family History Family Member Diagnosis Age At [...] Unknown Payers Payer name Insurance type Covered republican ID Authorization(s) [employer] [place] - Medicaid MC [id number] Social History Type Description Quantity Date Captured [...] Complete OB Ultrasound > 14 Ordered Weeks ([id number]) Future Order: Radiology Order Ultrasound, OB Limited ([id number]) Ordered Future Order: Radiology Order Ultrasound < 14 wks ([id number]) Ordered Future Order: Radiology Order Nuchal Translucency ([id number]) Ordered Date Type Problem Goal Intervention Status [...]
--- OUTSIDE RECORDS SUMMARY | 2017-06-14 08:03 | External Medical Summary | Continuity of Care Document ---
:1985 Author Organization [facility] Address [address] [place], [place] [id number] Phone Care Team Providers Name Role Phone [facility] Unavailable Unavailable Allergies, Adverse Reactions, Alerts Substance [...] first trimester Pap Smear Screening, Cervix - 10 weeks gestation of - Spotting complicating , [...] PA, , second 7 700 PO Box [email or web address] weeks Medical 1522, gestation of [facility], Derik Vargas, 120, , [place], [place], tel:[phone] , [place]. tel:[phone] [facility] Spotting Sep-0 Mar[facility] In Womens Ultrasound complicating 6-201 [facility], , second 7 700 PO Box trimesterEncounter Medical 1522, for suprvsn of [facility], normal , Derik Vargas, second [email or web address] 120, [id number], weeks gestation of [facility] [place], tel:[phone] , [place]. tel: [phone] [facility] Encounter for Aug-2 Mariza In Womens suprvsn of normal 1-201 [facility], , second 7 700 PO Box [email or web address] weeks Medical 1522, gestation of [facility], Derik Vargas, 120, [id number], [facility] [place], tel:[phone] , [place]. tel: [phone] Mary Bro Spotting Aug-1 Mariza In Womens complicating 7-201 [facility], , second 7 700 PO Box trimesterPlacenta Medical 1522, previa with [facility], hemorrhage, second Derik Vargas, [id number] weeks 120, [id number], gestation of [place], [place], tel:[phone] 196790 , [place]. tel:[phone] [facility] Spotting Aug-1 Mariza In Womens Ultrasound complicating 7-201 [facility], , second 7 700 PO Box trimesterPlacenta Medical 1522, previa with [facility], hemorrhage, second Derik Vargas, [email or web address] weeks 120, [id number], gestation of [place], [place], tel:[phone] 196790 , [place]. tel:[phone] [facility] Aug-1 Mariza In Womens 6-201 [facility], 7 700 PO Box Medical 1522, [place], Derik Vargas, 120, , [place], [place], tel:[phone] 196790 , [place]. tel:[phone] [facility] Placenta previa Dereck-2 Mariza In Womens specified as w/o 4-201 [facility], hemorrhage, first 7 700 PO Box [email or web address] weeks Medical 1522, gestation of [facility], Derik Vargas, 120, , [place], [place], tel:[phone] 1967[address] , [place]. tel:[phone] Mary Bro Encounter for Dereck-2 [facility] In Womens Ultrasound suprvsn of normal 4-201 [facility], , second 7 700 PO Box [email or web address] weeks Medical 1522, gestation of [facility], Derik Vargas, 120, , [place], [place], tel:[phone] , [place]. tel:[phone] [facility] [place] Encounter for Dereck-1 Mariza In Womens suprvsn of normal 2-201 [facility], , first 7 700 PO Box [email or web address] weeks Medical 1522, gestation of [facility], Derik Vargas, 120, , [facility] [place], tel:+ [phone] , [place]. tel: [phone] Mary Bro Encounter for Dereck-1 Mariza In Womens Ultrasound suprvsn of normal 2-201 [facility], , first 7 700 PO Box [email or web address] weeks Medical 1522, gestation of [facility], Derik Vargas, 120, , [facility] [place], tel:[phone] , [place]. tel: [phone] Mary Bro Encounter for Silvestre-2 Mariza In Womens suprvsn of normal 6-201 Nena. [facility], , first 7 700 PO Box trimesterPap Smear Medical 1522, Screening, [email or web address] [facility], weeks gestation of Derik Vargas, 120, , [facility] [place], tel:+ [phone] , [place]. tel: [phone] Family History Family Member Diagnosis Age At [...] Unknown Payers Payer name Insurance type Covered libertarian ID Authorization(s) [employer] [place] - Medicaid MC [id number] Social History Type Description Quantity Date Captured [...] Complete OB Ultrasound > 14 Ordered Weeks ([id number]) Future Order: Radiology Order Ultrasound, OB Limited ([id number]) Ordered Future Order: Radiology Order Ultrasound < 14 wks ([id number]) Ordered Future Order: Radiology Order Nuchal Translucency ([id number]) Ordered Date Type Problem Goal Intervention Status [...]
--- OUTSIDE RECORDS SUMMARY | 2017-06-14 08:04 | External Medical Summary | Continuity of Care Document ---
:1985 Author Organization [facility] Allergies Active Description Code Type Severity Reaction Onset Reported/ Identified Relationship Clinical to Patient Status Yes No Known 00364 3 N/A N/A Drug 0 Allergies Medications Medication Packaging Start Date Stop Date Route Dosage Sig 01/20/2009 MIRENA 7 DIRECTED Tablet 11/27/2016 DICLEGIS take 1 tablet by oral route every day in the morning, 1 tablet in the mid-afternoon , and 2 tablets at bedtime Problems Date Dx Attending Type Code Diagnosis Diagnosed By Coded 12/13/2016 Nena Dawkins Z34.81 Encounter for L suprvsn of normal , first trimester 12/13/2016 Nena Dawkins Z3A.12 12 weeks gestation L of 12/25/2016 Nena Dawkins Z34.82 Encounter for L suprvsn of normal , second trimester 12/25/2016 Nena Dawkins Z3A.14 14 weeks gestation L of 01/18/2017 Nena Dawkins O26.852 Spotting L complicating , second trimester 01/18/2017 Nena Dawkins O44.12 Placenta previa L with hemorrhage, second trimester 01/18/2017 Nena Dawkins Z3A.16 16 weeks gestation L of 02/07/2017 Nena Dawkins O26.852 Spotting L complicating , second trimester 02/07/2017 Nena Dawkins Z34.82 Encounter for L suprvsn of normal , second trimester 02/07/2017 Nena Dawkins Z3A.19 19 weeks gestation L of 03/14/2017 Nena Dawkins O26.852 Spotting L complicating , second trimester 03/14/2017 Nena Dawkins Z34.82 Encounter for L suprvsn of normal , second trimester 03/14/2017 Nena Dawkins Z3A.24 24 weeks gestation L of 05/09/2017 Madeleine Dawkinsyuliya Diaz O09.893 Supervision of L other high risk pregnancies, third trimester 05/09/2017 Mariza Nena Diaz O26.853 Spotting L complicating , third trimester 05/09/2017 Maricel Dawkinsrom Diaz O28.0 Abnormal hematolog L finding on screening of mother 05/09/2017 MarizaMadeleineNena W Z3A.32 32 weeks gestation L of 05/14/2017 Mariza Nena W O09.893 Supervision of L other high risk pregnancies, third trimester 05/14/2017 MarizaNena ly O26.853 Spotting L complicating , third trimester 05/14/2017 Mariza Nena Diaz O28.0 Abnormal hematolog L finding on screening of mother 05/14/2017 MarizaMadeleineNena W Z3A.32 32 weeks gestation L of 05/23/2017 Nena Dawkins O26.853 Spotting L complicating , third trimester 05/23/2017 Maricel Dawkinsa W O28.0 Abnormal hematolog L finding on screening of mother 05/23/2017 Mariza Nena Diaz Z3A.34 34 weeks gestation L of 05/30/2017 Mariza Nena W O28.0 Abnormal hematolog L finding on screening of mother 05/30/2017 MarizaMadeleineNena W Z3A.35 35 weeks gestation L of 05/30/2017 Nena Dawkins O28.0 Abnormal hematolog L finding on screening of mother 06/06/2017 MarizaMadeleineNena W O28.0 Abnormal hematolog L finding on screening of mother 06/06/2017 MarizaMadeleineNena W O40.3xx0 Polyhydramnios, L third trimester, not applicable or unsp 06/06/2017 Nena Dawkins Z3A.36 36 weeks gestation L of 06/13/2017 W O09.893 Supervision of other high risk pregnancies, third trimester 06/13/2017 W O28.0 Abnormal hematolog finding on screening of mother 06/13/2017 W O40.3xx0 Polyhydramnios, third trimester, not applicable or unsp 06/13/2017 W Z3A.37 37 weeks gestation of Procedures Code Description [place] [address] OB US < 14 12/13/2016 WKS, SINGLE FETUS 44863 Ultrasound, 12/25/2016 Nuchal Translucency Measurement 50963 Ultrasnd 01/18/2017 exam, preg uterus, limited 52019 Ultrasnd exam 02/07/2017 of preg uterus, compl 90026 OB Visit No 03/14/2017 Charge 38067 Ultrasnd preg 05/09/2017 uterus, flwup/repeat 16584 biophys 05/09/2017 prfl w/o nstress test 32412 biophys 05/14/2017 prfl w/o nstress test 07413 biophys 05/23/2017 prfl w/o nstress test 92561 biophys 05/30/2017 prfl w/o nstress test 92912 OB Visit No 05/30/2017 Charge 67734 Ultrasnd preg 06/06/2017 uterus, flwup/repeat 24112 biophys 06/06/2017 prfl w/o nstress test 80510 biophys 06/13/2017 prfl w/o nstress test Results There is no data. Encounters ACCT No. Visit Discharge Status Pt. Type Provider Facility Loc./Unit Complaint Date/Time [id number] 06/06/2017 06/06/2017 CLS Outpatient Mariza, 11:30:00 23:59:59 Nena L [id number] 06/06/2017 06/06/2017 CLS Outpatient Mariza, 11:15:00 23:59:59 Nena L [id number] 05/30/2017 05/30/2017 CLS Outpatient Mariza, 12:03:00 23:59:59 Nena L [id number] 05/30/2017 05/30/2017 CLS Outpatient Mariza, 11:30:00 23:59:59 Nena L [id number] 05/30/2017 05/30/2017 CLS Outpatient Mariza, 11:15:00 23:59:59 Nena L [id number] 05/23/2017 05/23/2017 CLS Outpatient Mariza, 11:30:00 23:59:59 Nena L [id number] 05/23/2017 05/23/2017 CLS Outpatient Mariza, 11:15:00 23:59:59 Nena L [id number] 05/14/2017 05/14/2017 CLS Outpatient Sobbing, 10:30:00 23:59:59 Sen L [id number] 05/14/2017 05/14/2017 CLS Outpatient Mariza, 10:15:00 23:59:59 Nena L [id number] 05/09/2017 05/09/2017 CLS Outpatient Mariza, 10:10:00 23:59:59 Nena L [id number] 05/09/2017 05/09/2017 CLS Outpatient Mariza, 09:45:00 23:59:59 Nena L [id number] 05/03/2017 05/03/2017 CLS Outpatient Mariza, 16:15:00 23:59:59 Nena L [id number] 04/11/2017 04/11/2017 CLS Outpatient Mariza, 11:15:00 23:59:59 Nena L [id number] 03/14/2017 03/14/2017 CLS Outpatient Mariza, 10:30:00 23:59:59 Nena L [id number] 02/07/2017 02/07/2017 CLS Outpatient Mariza, 11:30:00 23:59:59 Nena L [id number] 02/07/2017 02/07/2017 CLS Outpatient Mariza, 11:15:00 23:59:59 Nena L [id number] 01/22/2017 01/22/2017 CLS Outpatient Mariza, 09:45:00 23:59:59 Nena L [id number] 01/18/2017 01/18/2017 CLS Outpatient Mariza, 09:00:00 23:59:59 Nena L [id number] 01/18/2017 01/18/2017 CLS Outpatient Mariza, 09:00:00 23:59:59 Nena L [id number] 01/17/2017 01/17/2017 CLS Outpatient Mariza, 14:49:00 23:59:59 Nena L [id number] 12/25/2016 12/25/2016 CLS Outpatient Mariza, 09:00:00 23:59:59 Nena L [id number] 12/25/2016 12/25/2016 CLS Outpatient Mariza, 08:45:00 23:59:59 Nena L [id number] 12/22/2016 12/22/2016 CLS Outpatient Mariza, 10:48:00 23:59:59 Nena L [id number] 12/21/2016 12/21/2016 CLS Outpatient Mariza, 13:24:00 23:59:59 Nena L [id number] 12/13/2016 12/13/2016 CLS Outpatient Mariza, 10:40:00 23:59:59 Nena L [id number] 12/13/2016 12/13/2016 CLS Outpatient Mariza, 10:15:00 23:59:59 Nena L [id number] 11/27/2016 11/27/2016 CLS Outpatient Mariza, 09:15:00 23:59:59 Nena L [id number] 06/13/2017 Document 11:30:00 Registration [id number] 06/13/2017 Document 11:15:00 Registration [id number] 11/27/2016 Document 09:24:09 Registration
--- OUTSIDE RECORDS SUMMARY | 2017-06-14 08:04 | External Medical Summary | Continuity of Care Document ---
:1987 Author Organization [facility] [facility] Address [address] [place], [place] [address] Phone Care Team Providers Name Role Phone [facility] Unavailable Unavailable Allergies, Adverse [...] strength) route every 4 days as needed Benadryl 25 mg take 1 capsule by oral - Active capsule route every 4 hours as needed Problems Condition Effective Dates (start - stop) Clinical Status Encounter for suprvsn of normal - , third trimester 28 weeks gestation of - Pap Smear Screening, Cervix - Encounter for suprvsn of normal - , first trimester 10 weeks gestation of - Spotting complicating [...] Procedure Date 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 Health LIONEL, , third 7 700 [address] [email or web address] weeks Medical 1522, gestation of [facility], Derik Vargas, 120, [id number], [facility] [place], tel: [phone] [place] [address] , . tel: [phone] Mary Bro Spotting Mariza Referring In Womens complicating 1-201 Nena. Provider: Health LIONEL, , second 7 700 Nena PO Box trimesterEncounte Medical Mariza L, 1522, r for suprvsn of [address], normal , Derik Vargas, second 120, Center [id number], [email or web address] weeks [place] [facility] 120, [place] gestation of [place]IVAR[place], tel: [phone] [address] [id number]. tel: tel: [phone] [facility] [place] Encounter for Sep-0 Mariza In Womens suprvsn of normal 6-201 Nena. Health [place], , second 7 700 PO Box weeks Medical 1522, gestation of [facility] [place], Derik Vargas, 120, [id number], [place], [place], tel:[phone] , [place]. tel: [phone] [facility] [place] Spotting Sep-0 Mariza In Womens Ultrasound complicating 6-201 Nena. Health [place], , second 7 700 PO Box trimesterEncounte Medical 1522, r for suprvsn of [facility], normal , Derik Vargas, second 120, [id number], [email or web address] weeks [place], [place] gestation of [place], tel: [phone] , [place]. tel: [phone] [facility] [place] Encounter for Aug-2 Mariza In Womens suprvsn of normal 1-201 Nena. Health [place], , second 7 700 PO Box [email or web address] weeks Medical 1522, gestation of Center [place], Derik Vargas, 120, , [place], [place], tel: [phone] , [place]. tel: [phone] [facility] [place] Spotting Aug-1 Mariza In Womens complicating 7-201 Nena. Health [place], , second 7 700 PO Box trimesterPlacenta Medical 1522, previa with Douglas Rolly, hemorrhage, Derik Vargas, second 120, [id number], [email or web address] weeks [place], [place] gestation of [place], tel: [phone] , [place]. tel: [phone] [facility] [place] Spotting Aug-1 Mariza In Womens Ultrasound complicating 7-201 Nena. Health [place], , second 7 700 PO Box trimesterPlacenta Medical 1522, previa with [place] Rolly, hemorrhage, Derik Vargas, second 120, [id number], [email or web address] weeks [place], [place] gestation of [place], tel: [phone] , [place]. tel:[phone] Mary Bro Placenta previa Dereck-2 Mariza In Womens specified as w/o 4-201 Nena. Health [place], hemorrhage, first 7 700 PO Box [email or web address] weeks Medical 1522, gestation of [facility], Derik Vargas, 120, [id number], [place], tel:[phone] , [place]. tel:[phone] Mary Bro Encounter for Dereck-2 Mariza In Womens Ultrasound suprvsn of normal 4-201 Nena. Health [place], , second 7 700 PO Box weeks Medical 1522, gestation of [facility], Derik Vargas, 120, [id number], [place], [place], tel:[phone] , [place]. tel: [phone] Mary Bro Encounter for Dereck-1 Mariza In Womens suprvsn of normal 2-201 Nena. Health [place], , first 7 700 PO Box [email or web address] weeks Medical 1522, gestation of [facility], Derik Vargas, 120, [id number], [place], [place], tel:[phone] , [place]. tel: [phone] Mary Bro Encounter for Dereck-1 Mariza In Womens Ultrasound suprvsn of normal 2-201 Nena. Health [place], , first 7 700 PO Box [email or web address] weeks Medical 1522, gestation of [facility], Derik Vargas, 120, [id number], [place], tel:[phone] , [place]. tel: [phone] Mary Bro Pap Smear Silvestre-2 Mariza In Womens Screening, 6-201 Nena. Health [place], CervixEncounter 7 700 PO Box for suprvsn of Medical 1522, normal , [facility], first [email or web address] Derik Vargas, weeks gestation 120, , of [place], [place], tel:[phone] , [place]. tel:[phone] Family History Family Member Diagnosis Age At [...] Grandfather Diabetes Immunizations Vaccine Date Status Comments Influenza, injectable, completed Source: New Immunization Record quadrivalent, preservative free, 3 yrs or older Payers Payer name Insurance type Covered libertarian ID Authorization(s) [employer] [place] Medicaid [place] [id number] [employer] [place] [id number] Social History Type Description Quantity Date Captured [...] Complete OB Ultrasound > 14 Ordered Weeks (76738) Future Order: Radiology Order Ultrasound, OB Limited ([id number]) Ordered Future Order: Radiology Order Ultrasound < 14 wks (90725) Ordered Future Order: Radiology Order Nuchal Translucency (08065) Ordered Date Type Problem Goal Intervention Status [...]
--- OUTSIDE RECORDS SUMMARY | 2017-06-14 08:04 | External Medical Summary | Continuity of Care Document ---
:1987 Author Organization [facility] Address [address] [place], [place] [phone] Phone Care Team Providers Name Role Phone [facility] Unavailable Unavailable Allergies, Adverse Reactions, [...] Womens suprvsn of normal 6-201 Nena. Health [place], , second 7 700 PO Box [email or web address] weeks Medical 1522, gestation of [facility], Derik Vargas, 120, [id number], [facility] [place], tel:[phone] , [place]. tel:[phone] Mary Bro Spotting Sep-0 Mariza In Womens Ultrasound complicating 6-201 Nena. Health [place], , second 7 700 PO Box trimesterEncounter Medical 1522, for suprvsn of [facility], normal , Derik Vargas, second [email or web address] 120, [id number], weeks gestation of [facility] [place], tel:[phone] , [place]. tel:[phone] Mary Bro Encounter for Aug-2 Mariza In Womens suprvsn of normal 1-201 Nena. Health [place], , second 7 700 PO Box [email or web address] weeks Medical 1522, gestation of [facility], Derik Vargas, 120, [id number], [facility] [place], tel:[phone] , [place]. tel:[phone] Mary Bro Spotting Aug-1 Mariza In Womens complicating 7-201 Nena. Health [place], , second 7 700 PO Box trimesterPlacenta Medical 1522, previa with [facility] [place], hemorrhage, second Derik Vargas, [email or web address] weeks 120, , gestation of [place], [place], tel:[phone] , [place]. tel: [phone] [facility] [place] Spotting Aug-1 Mariza In Womens Ultrasound complicating 7-201 Nena. Health [place], , second 7 700 PO Box trimesterPlacenta Medical 1522, previa with [facility] [place], hemorrhage, second Derik Vargas, [email or web address] weeks 120, , gestation of [place], [place], tel:[phone] [address] , [place]. tel:[phone] Mary Bro Placenta previa Dereck-2 Mariza In Womens specified as w/o 4-201 Nena. Health [place], hemorrhage, first 7 700 PO Box [email or web address] weeks Medical 1522, gestation of [facility], Derik Vargas, 120, , [place], [place], tel:[phone] [address] , [place]. tel: [phone] Mary Bro Encounter for Dereck-2 Mariza In Womens Ultrasound suprvsn of normal 4-201 Nena. Health [place], , second 7 700 PO Box [email or web address] weeks Medical 1522, gestation of [facility], Derik Vargas, 120, , [place], [place], tel:[phone] , [place]. tel:[phone] Mary Bro Encounter for Dereck-1 Mariza In Womens suprvsn of normal 2-201 Nena. Health [place], , first 7 700 PO Box [email or web address] weeks Medical 1522, gestation of [facility], Derik Vargas, 120, , [place], [place], tel:[phone] , [place]. tel:[phone] Mary Bro Encounter for Dereck-1 Mariza In Womens Ultrasound suprvsn of normal 2-201 Nena. Health [place], , first 7 700 PO Box [email or web address] weeks Medical 1522, gestation of [facility], Derik Vargas, 120, [id number], [place], [place], tel: [phone] , [place]. tel: [phone] Mary Bro 10 weeks gestation Silvestre-2 Mariza In Womens of 6-201 Nena. [facility], pregnancyEncounter 7 700 PO Box for suprvsn of Medical 1522, normal , [facility], first trimesterPap Derik Vargas, Smear Screening, 120, [id number], Cervix [place], [place], tel:[phone] , [place]. tel: [phone] Family History Family Member Diagnosis Age At [...] [employer] [place] - Medicaid MC [id number] Social History Type Description Quantity Date Captured Alcohol Use Details No Caffeine Use Details Unknown Tobacco Use Status Unknown Smoking Status Never smoker Vital Signs Date / Height Weight BMI Pulse Blood Temperature Respiratory Body Head BMI Time: Rate Pressure Rate Surface Circumference percentile Area 157.60 30.2 123/77 lbs 7 mm[Hg] 10:07 kg/m AM eter (2) 29.6 6 9:53 kg/m AM eter (2) Chief Complaint And Reason For Visit Unknown Chief Complaint And Reason For Visit Reason For Referral Reason For Referral Unknown Plan Of Care Date Type Action Status Appointment Angela Yarbrough BOOKED Future Order: Radiology Order Complete OB Ultrasound > 14 Ordered Weeks ([id number]) Future Order: Radiology Order Ultrasound, OB Limited ([id number]) Ordered Future Order: Radiology Order Ultrasound < 14 wks ([id number]) Ordered Future Order: Radiology Order Nuchal Translucency ([id number]) Ordered Date Type Problem Goal Intervention Status [...]
--- OUTSIDE RECORDS SUMMARY | 2017-06-14 08:04 | External Medical Summary | Continuity of Care Document ---
:1987 Author Organization [facility] [employer] [facility] Address [address] [place], [place] [phone] Phone Care Team Providers Name Role Phone [...] hemorrhage, 7 700 [address], first [place], [place], [email or web address] Center [id number], weeks gestation Derik Vargas [place] of 120, tel:[phone] [place], [address] [place], [id number] , [place]. tel: [phone] Mary Bro Encounter for Dereck-2 Mariza In Womens Ultrasound suprvsn of 4-201 Nena. Health LIONEL, normal 7 700 [address], , [place], [place], second Center [id number], [email or web address] Derik Vargas [place] weeks gestation 120, tel:[phone] of [place], [address] [place], [id number] , [place]. tel: [phone] Mary Bro Dereck-2 Mariza In Womens 1-201 Nena. [place] [facility], 7 700 [address], [place], [place], [place] [id number], Derik Vargas [place] 120, tel:[phone] [place] [address] [place], [id number] , [place]. tel: [phone] Mary Bro Encounter for Dereck-1 Mariza In Womens suprvsn of 2-201 Nena. [place], normal 7 700 [address], , first [place], [place], [email or web address] Center [id number], weeks gestation Derik Vargas [place] of 120, tel:[phone] [place] [address] [place], [id number] , [place]. tel: [phone] Mary Bro Encounter for Dereck-1 Mariza In Womens Ultrasound suprvsn of 2-201 Nena. Health LIONEL, normal 7 700 [address], , first [place], [place], [email or web address] Center [id number], weeks gestation Derik Vargas [place] of 120, tel:[phone] [place] [address] [place], [id number] , [place]. tel: [phone] Mary Bro Pap Smear Silvestre-2 Mariza In Womens Screening, 6-201 Nena. [place], CervixEncounter 7 700 [address], for suprvsn of [facility] [place], normal Center [id number], , first Derik Vargas [place] [email or web address] 120, tel:[phone] weeks gestation [place] [address] of [place], [id number] , [place]. tel: [phone] Family History Family Member Diagnosis Age At [...] [employer] [place] [employer] [place] - Medicaid [place] [id number] Social History Type Description Quantity Date Captured [...] Order: Radiology Order Ultrasound < 14 wks ([id number]) Ordered Future Order: Radiology Order Nuchal Translucency ([id number]) Ordered Date Type Problem Goal Intervention Status [...] tobacco (ask, advise, assess, assist and arrange) HIV and other routine tests risk factors identified by history alcohol illicit / recreational drugs use of any medications (including supplements, vitamins, herbs, OTC drugs) smoking counseling domestic violence seat belt use childbirth classes / hospital facilities hospital registration genetic testing new ob handbook
--- OUTSIDE RECORDS SUMMARY | 2017-06-14 08:04 | External Medical Summary | Continuity of Care Document ---
:1987 Author Organization [facility] Address [address] [place], [place] [phone] Phone Care Team Providers Name Role Phone [facility] Unavailable Unavailable Allergies, Adverse Reactions, Alerts Substance [...] second trimester 14 weeks gestation of - Pap Smear Screening, [...] first trimester 12 weeks gestation of - Procedures Procedure Date Ultrasound, Nuchal Translucency Measurement Results Test Name Date and Time Measure Units Reference Range Abnormal Flag Comments Unknown Advance Directives Directive Yes / No Effective Date File Name Unknown Encounters Encounter Practice Location Reason(s) Diagnoses Date Provider Care Description For Visit Team Members Mary Bro Placenta previa Dereck-2 Mariza In Womens specified as w/o 4-201 Nena. Health LIONEL, hemorrhage, 7 700 [address], first [place], [place], [email or web address] Center [id number], weeks gestation Derik Vargas [place] of 120, tel:[phone] [place] [address] [place] [address], [id number] , [place]. tel: [phone] Mary Bro Encounter for Dereck-2 Mariza In Womens Ultrasound suprvsn of 4-201 Nena. Health LIONEL, normal 7 700 [address], , [place], [place], second Center [id number], [email or web address] Derik Vargas [place] weeks gestation 120, tel:[phone], [id number] , [place]. tel: [phone] Mary Bro Encounter for Dereck-1 Mariza In Womens suprvsn of 2-201 Nena. Health LIONEL, normal 7 700 [address], , first [place], [place], [email or web address] Center [id number], weeks gestation Derik Vargas [place] of 120, tel:[phone] [place] [address] [place] [address], [id number] , [place]. tel: [phone] Mary Bro Encounter for Dereck-1 Mariza In Womens Ultrasound suprvsn of 2-201 Nena. [place], normal 7 700 [address], , first [place], [place], [email or web address] Center [id number], weeks gestation Derik Vargas [place] of 120, tel:[phone] [place] [address] [place] [address], [id number] , [place]. tel: [phone] Mary Bro Pap Smear Silvestre-2 Mariza In Womens Screening, 6-201 Nena. Health LIONEL, CervixEncounter 7 700 [address], for suprvsn of [place], [place], normal Center [id number], , first Derik Vargas [place] 120, tel:[phone] weeks gestation [place], [address] [address] [place], [id number] , [place]. tel: [phone] Family History Family Member Diagnosis Age At [...] [employer] [place] - Medicaid MC [id number] Social History Type Description Quantity Date Captured [...] Angela Yarbrough BOOKED Future Order: Radiology Order Nuchal Translucency ([id number]) Ordered Future Order: Radiology Order Ultrasound < 14 wks ([id number]) Ordered Date Type Problem Goal Intervention Status [...]
--- OUTSIDE RECORDS SUMMARY | 2017-06-14 08:04 | External Medical Summary | Continuity of Care Document ---
:1985 Author Organization [facility] [employer] [facility] Address [address] [place], [place] [id number] Phone Care Team Providers Name Role Phone [facility] Unavailable Unavailable Allergies, Adverse [...] of mother 34 weeks gestation of - Pap Smear [...] Health PA, pregnancies, 8 [address] [facility] 1522, [facility] [place], amnios, third Derik Vargas [place], trimester, not 120, [id number], applicable or [place] [email or web address] weeks [place], tel:+ gestation of , [place]. tel: [phone] [facility] [place] Abnormal Kevyn-0 Mariza In Womens Ultrasound hematolog finding 3-201 Nena. Health PA, on 8 700 [address] screening of Medical 1522, motherPolyhydramn Center [place], ios, third Derik Vargas, trimester, not 120, , applicable or [place], [email or web address] weeks [place], tel:+ gestation of [phone] , [place]. tel: [phone] [facility] [place] Supervision of Dec-2 Mariza In Womens other high risk 7-201 Nena. Health PA, pregnancies, 7 700 [address] third Medical 1522, trimesterAbnormal Center [place], hematolog finding Derik Vargas, on 120, , screening of [place], motherPolyhydramn [place], tel:+ ios, third trimester, not , [place]. applicable or tel: [email or web address] weeks [phone] gestation of Associates [place] Supervision of Dec-2 Mariza In Womens other high risk 7-201 Nena. Health PA, pregnancies, 7 700 PO [address] third Medical 1522, trimesterAbnormal Center [place], hematolog finding Derik Vargas, on 120, , screening of [place], motherPolyhydramn [place], tel:+ ios, third trimester, not , [place]. applicable or tel: [email or web address] weeks [phone] gestation of Associates [place] Abnormal Dec-2 Mariza In Womens Ultrasound hematolog finding 7-201 Nena. Health PA, on 7 700 PO Box screening of Medical 1522, motherPolyhydramn Center [place], ios, third Derik Vargas, trimester, not 120, , applicable or [place] [email or web address] weeks [place], tel:[phone] gestation [phone] , [place]. tel: [phone] [facility] [place] Spotting Dec-2 Mariza In Womens complicating 0-201 Nena. Health PA, , third 7 700 PO [address] [facility], r for suprvsn of [facility], normal , Derik Vargas, third [email or web address] 120, [id number], weeks gestation [place], [place] of [place], tel:[phone] , [place]. tel: [phone] Mary Bro Spotting Dec-2 Mariza In Womens Ultrasound complicating 0-201 Nena. Health PA, , third 7 700 PO Box trimesterAbnormal Medical 1522, hematolog finding [facility], on Derik Vargas, screening of 120, [id number], [email or web address] weeks [place], [place] gestation of [place], tel: [phone] [address] , [place]. tel: [phone] Mary Bro Supervision of May- Sobbing Referring In Womens other high risk 1-201 Sen. Provider: Health PA, pregnancies, 7 700 Nena [address] third Medical Mariza L, 1522, trimesterAbnormal Center [address] [place] [address], hematolog finding [facility], on Suite Center , screening of 120, Derik 120, US motherEncounter [place], tel: for suprvsn of [place], [place], normal , [address], [id number]. third [email or web address] [place]. tel: weeks gestation tel: [phone] of [phone] Mary Bro Supervision of May- Mariza In Womens Ultrasound other high risk 1-201 Nena. Health PA, pregnancies, 7 700 PO Box third Medical 1522, trimesterSpotting Center [place], complicating Derik Vargas, , third 120, [id number], trimesterAbnormal [place], [place] hematolog finding [place], tel: on [phone] screening of , [place]. weeks tel: gestation of [phone] [facility] [place] Spotting Dec-0 Mariza In Womens complicating 6-201 Nena. Health PA, , third 7 700 PO Box trimesterAbnormal Medical 1522, hematolog finding [facility], on Derik Vargas, screening of 120, [id number], [email or web address] weeks [place], [place] gestation of [place], tel: [phone] [address] , [place]. tel: [phone] Mary Bro Supervision of Dec-0 Mariza In Womens Ultrasound other high risk 6-201 Nena. Health PA, pregnancies, 7 700 PO Box third Medical 1522, trimesterSpotting [facility], complicating Derik Vargas, , third 120, [id number], trimesterAbnormal [place], [place] hematolog finding [place], tel: on [phone] screening of , [place]. weeks tel: gestation of [phone] [facility] [place] Abnormal Nov-3 Mariza In Womens hematolog finding 0-201 Nena. Health LIONEL, on 7 700 PO Box screening of Medical 1522, motherEncounter [facility], for suprvsn of Derik Vargas, normal , 120, [id number], third [email or web address] [place], [place] weeks gestation [place], tel: of [phone] [address] , [place]. tel: [phone] Mary Bro Encounter for Nov-0 Mariza In Womens suprvsn of normal 8-201 Nena. Health PA, , third 7 700 [address] [email or web address] weeks Medical 1522, gestation of [facility], Derik Vargas, 120, [id number], [place], [place], tel:901 , [place]. tel: [phone] Mary Bro Spotting Oct-1 Mariza Referring In Womens complicating 1-201 Nena. Provider: Health LIONEL, , second 7 700 Nena PO Box trimesterEncounte Medical Mariza L, 1522, r for suprvsn of Center [address] [place] [address], normal , Derik Vargas, second 120, Center , [email or web address] weeks [place] Derik 120, [place] gestation of [place] OLIVARES, tel: [phone] [place], , [place]. [id number]. tel: tel: [phone] Mary Bro Encounter for Sep-0 Mariza In Womens suprvsn of normal 6-201 Nena. Health PA, , second 7 700 PO Box [email or web address] weeks Medical 1522, gestation of [place], Derik Vargas, 120, [id number], [place], [place], tel:[phone] , [place]. tel: [phone] [facility] [place] Spotting Sep-0 Mariza In Womens Ultrasound complicating 6-201 Nena. Health PA, , second 7 700 PO Box trimesterEncounte Medical 1522, r for suprvsn of [facility], normal , Derik Vargas, second 120, [id number], [email or web address] weeks [place], [place] gestation of [place], tel:+ [phone] [address] , [place]. tel: [phone] [facility] [place] Encounter for Aug-2 Mariza In Womens suprvsn of normal 1-201 Nena. Health PA, , second 7 700 PO Box [email or web address] weeks Medical 1522, gestation of [facility], Derik Vargas, 120, , [place], [place], tel:+ [phone] , [place]. tel: [phone] [facility] [place] Spotting Aug-1 Mariza In Womens Ultrasound complicating 7-201 Nena. Health PA, , second 7 700 PO Box trimesterPlacenta Medical 1522, previa with [facility] hemorrhage, Derik Vargas, second 120, [id number], [email or web address] weeks [place], gestation of [place], tel:+ [phone] [address] , [place]. tel: [phone] [facility] [place] Spotting Aug-1 Mariza In Womens complicating 7-201 Nena. Health PA, , second 7 700 PO Box trimesterPlacenta Medical 1522, previa with [place], hemorrhage, Derik Vargas, second 120, [id number], [email or web address] weeks [place], [place] gestation of [place], tel:[phone] , [place]. tel: [phone] [facility] [place] Placenta previa Dereck-2 Mariza In Womens specified as w/o 4-201 Nena. Health PA, hemorrhage, first 7 700 PO Box [email or web address] weeks Medical 1522, gestation of [facility], Derik Vargas, 120, [id number], [place], [place], tel:[phone] , [place]. tel: [phone] Mary Bro Encounter for Dereck-2 Mariza In Womens Ultrasound suprvsn of normal 4-201 Nena. Health PA, , second 7 700 PO Box [email or web address] weeks Medical 1522, gestation of [facility], Derik Vargas, 120, [id number], [place], [place], tel:[phone] , [place]. tel: [phone] Mary Bro Encounter for Dereck-1 Mariza In Womens suprvsn of normal 2-201 Nena. Health PA, , first 7 700 PO Box [email or web address] weeks Medical 1522, gestation of [facility], Derik Vargas, 120, , [place], [place], tel:[phone] [address] , [place]. tel: [phone] Mary Bro Encounter for Dereck-1 Mariza In Womens Ultrasound suprvsn of normal 2-201 Nena. Health PA, , first 7 700 PO Box [email or web address] weeks Medical 1522, gestation of [facility], Derik Vargas, 120, [id number], [place], [place], tel:[phone] , [place]. tel: [phone] Mary Bro Pap Smear Silvestre-2 Mariza In Womens Screening, 6-201 Nena. Health PA, CervixEncounter 7 700 PO Box for suprvsn of Medical 1522, normal , [facility], first [email or web address] Derik Vargas, weeks gestation 120, , of [place], tel:[phone] [address] , [place]. tel: [phone] Family History Family Member Diagnosis Age At [...] [place] Medicaid [place] [id number] [place] Medicaid [place] [id number] [place] - Medicaid MC [id number] Social History Type Description Quantity Date Captured Unknown Vital Signs Date / Height Weight BMI Pulse Blood Temperature Respiratory Body Head BMI Time: Rate Pressure Rate Surface Circumference percentile Area Unknown Chief Complaint And Reason For Visit Unknown Chief Complaint And Reason For Visit Reason For Referral Reason For Referral Unknown Plan Of Care Date Type Action Status Appointment Angela Yarbrough With Cyanide Case Hardener Appointment Angela Yarbrough BOOKED Appointment Angela Yarbrough BOOKED Appointment Angela Yarbrough BOOKED Appointment Angela Yarbrough BOOKED Appointment Angela Yarbrough BOOKED Future Order: Radiology Biophysical Profile without Ordered Order NST ([id number]) Future Order: Radiology Ultrasound OB Follow-up Ordered Order ([id number]) Future Order: Radiology Biophysical Profile without Ordered Order NST ([id number]) Future Order: Radiology Biophysical Profile without Ordered Order NST ([id number]) Future Order: Radiology Complete OB Ultrasound > Ordered Order 14 Weeks ([id number]) Future Order: Radiology Ultrasound, OB Limited Ordered Order ([id number]) Future Order: Radiology Ultrasound OB Follow-up Ordered Order ([id number]) Future Order: Radiology Biophysical Profile without Ordered Order NST ([id number]) Future Order: Radiology Biophysical Profile without Ordered Order NST ([id number]) Future Order: Radiology Biophysical Profile without Ordered Order NST ([id number]) Future Order: Radiology Ultrasound < 14 wks Ordered Order ([id number]) Future Order: Radiology Nuchal Translucency ([id number]) Ordered Order Date Type Problem Goal Intervention Status Start [...]
--- OUTSIDE RECORDS SUMMARY | 2017-06-14 08:04 | External Medical Summary | Continuity of Care Document ---
:1987 Author Organization [facility] [employer] [facility] Address [address] [place], [place] [address] Phone Care Team Providers Name Role Phone [facility] Unavailable Unavailable Allergies, Adverse Reactions, Alerts Substance [...] gestation of - Procedures Procedure Date Ultrasnd exam, preg uterus, limited Results Test Name Date and Time Measure Units Reference Range Abnormal Flag Comments Unknown Advance Directives Directive Yes / No Effective Date File Name Unknown Encounters Encounter Practice Location Reason(s) Diagnoses Date Provider Care Description For Visit Team Members [facility] [place] Encounter for Sep-0 Mariza In Womens suprvsn of normal 6-201 Nena. Health [place], , second 7 700 PO Box [email or web address] weeks Medical 1522, gestation of [facility], Derik Vargas, 120, [id number], [place], [place], tel:[phone] , [place]. tel:[phone] Mary Bro Spotting Sep-0 Mariza In Womens Ultrasound complicating 6-201 Nena. Health [place], , second 7 700 PO Box trimesterEncounter Medical 1522, for suprvsn of [facility], normal , Derik Vargas, second [email or web address] 120, [id number], weeks gestation of [facility] [place], tel:[phone] , [place]. tel:[phone] Mary rBo Encounter for Aug-2 Mariza In Womens suprvsn of normal 1-201 Nena. Health PA, , second 7 700 PO Box [email or web address] weeks Medical 1522, gestation of [facility], Derik Vargas, 120, [id number], [place], [place], tel:[phone] , [place]. tel:[phone] Mary Bro Spotting Aug-1 Mariza In Womens Ultrasound complicating 7-201 Nena. Health PA, , second 7 700 PO Box trimesterPlacenta Medical 1522, previa with [facility] [place], hemorrhage, second Derik Vargas, [email or web address] weeks 120, [id number], gestation of [place], [place], tel:[phone] , [place]. tel: [phone] Mary Bro Spotting Aug-1 Mariza In Womens complicating 7-201 Nena. Health PA, , second 7 700 PO Box trimesterPlacenta Medical 1522, previa with [facility] [place], hemorrhage, second Derik Vargas, [email or web address] weeks 120, , gestation of [place], [place], tel:[phone] , [place]. tel: [phone] Mary Bro Placenta previa Dereck-2 Mariza In Womens specified as w/o 4-201 Nena. Health PA, hemorrhage, first 7 700 PO Box [email or web address] weeks Medical 1522, gestation of [facility], Derik Vargas, 120, , [place], [place], tel:[phone] , [place]. tel: [phone] Mary Bro Encounter for Dereck-2 Mariza In Womens Ultrasound suprvsn of normal 4-201 Nena. Health PA, , second 7 700 PO Box [email or web address] weeks Medical 1522, gestation of [facility], Derik Vargas, 120, , [place], [place], tel:[phone] , [place]. tel: [phone] Mary Bro Encounter for Dereck-1 Mariza In Womens suprvsn of normal 2-201 Nena. Health PA, , first 7 700 PO Box [email or web address] weeks Medical 1522, gestation of [facility], Derik Vargas, 120, [id number], [place], [place], tel:[phone] , [place]. tel: [phone] Mary Bro Encounter for Dereck-1 Mariza In Womens Ultrasound suprvsn of normal 2-201 Nena. Health PA, , first 7 700 PO Box weeks Medical 1522, gestation of [facility], Derik Vargas, 120, [id number], [place], [place], tel:[phone] [address] , [place]. tel: [phone] Mary Bro 10 weeks gestation Silvestre-2 Mariza In Womens of 6-201 Nena. [facility], pregnancyEncounter 7 700 PO Box for suprvsn of Medical 1522, normal , [facility], first trimesterPap Derik Vargas, Smear Screening, 120, [id number], Cervix [place], [place], tel:[phone] [address] , [place]. tel: [phone] Family History Family Member Diagnosis Age At [...] [employer] [place] - Medicaid MC [id number] Social History Type Description Quantity Date Captured [...] Angela Yarbrough BOOKED Future Order: Radiology Order Ultrasound, OB Limited ([id number]) Ordered Future Order: Radiology Order Complete OB Ultrasound > 14 Ordered Weeks ([id number]) Future Order: Radiology Order Ultrasound < 14 wks ([id number]) Ordered Future Order: Radiology Order Nuchal Translucency ([id number]) Ordered Date Type Problem Goal Intervention Status [...]
--- OUTSIDE RECORDS SUMMARY | 2017-06-14 08:04 | External Medical Summary | Continuity of Care Document ---
:1987 Author Organization [facility] [employer] [facility] Address [address] [place], [place] [address] Phone Care Team Providers Name Role Phone [...] second trimester 24 weeks gestation of - Pap Smear Screening, [...] Procedures Procedure Date OB Visit No Charge Immuniz admnin, 1 vac, sngl/combo 19 Yrs + Flu Vaccine - Quadrivalent Results Test Name Date and Time Measure Units Reference Range Abnormal Flag Comments Panel Description: Glucose [Mass/volume] in Serum or Plasma --1 hour post 50 g glucose PO GLUCOSE, 107 mg/dL <140 N Test performed at [employer] [facility] GESTATIONAL SCREEN 11:07:00 [employer] [id number] (50G)-[address] [place] [address]Qeplakzt: OSBALDO MELENDEZ DO,MPH Panel Description: HEMOGLOBIN + HEMATOCRIT HEMOGLOBIN 11:07:00 12.5 g/dL 11.7-15.5 N HEMATOCRIT 11:07:00 34.9 % 35.0-45.0 L REPORT COMMENT:FASTING :NOTest performed at [employer] ([email or web address]) [id number] [place] [address]Iyvbocny: OSBALDO MELENDEZ DO,MPH Panel Description: Antithrombin actual/normal in Platelet poor plasma by Chromogenic method ANTITHROMBIN III 100 % activity 80-120 Test performed at [employer] ([place] ACTIVITY 11:07:00 [facility] [place] [address]Tbfhadze: SAHIL JIMENEZ MD,PHD Panel Description: Protein S Ag actual/normal in Platelet poor plasma by Immunologic method PROTEIN S ANTIGEN, 11:07:00 82 % 70-140 Units: % of normal Test TOTAL performed at [employer] ([email or web address])/[address] [address]Jirvhgvy: SAHIL JIMENEZ MD,PHD Panel Description: LUPUS ANTICOAGULANT EVALUATION WITH REFLEX LUPUS see A Lupus Anticoagulant is not detected. Reference Range: Not Detected ANTICOAGULANT 11:07:00 note [email or web address]/faq/ LupusAnticoag This interpretation is based on the following testresults. PTT LA SCREEN 35 s & 11:07:00 e l c t ; = 4 0 DRVVT MIX Not INTERPRETATION 11:07:00 Indic : ated DRVVT SCREEN 41 s & Test performed at [employer] ([email or web address])/ [address] [address]Mwlwdcae: 11:07:00 e l SAHIL JIMENEZ MD,PHD c t ; = 4 5 Panel Description: CARDIOLIPIN AB (IGA,IGG,IGM) CARDIOLIPIN <11 APL < OR=11 Negative 12-20 Indeterminate AB (IGA) 11:07:00 21-80 Low to Medium Positive >80 High Positive For more information on this test, go to: http://[email or web address].ch.Precipio/faq/[email or web address] CARDIOLIPIN <14 GPL < OR=14 Negative 15-20 Indeterminate AB (IGG) 11:07:00 21-80 Low to Medium Positive >80 High Positive Greater than or equal to 40 GPL is a risk factorfor thrombosis and loss. For more information on this test, go to: http://education.Precipio/faq/SKF424 CARDIOLIPIN <12 MPL Clinical Significance:The Antiphospholipid AB (IGM) 11:07:00 Antibody Syndrome (APS) is a clinicalpathologic correlation that includes a clinical event (e.g.thrombosis, loss, thrombocytopenia) and persistentpositive Antiphospholipid Antibodies (IgM or IgG TABITHA >40MPL/GPL, IgM or IgG anti-B2GP1 antibodies, or a LupusAnticoagulant). The IgA isotype has been implicated insmaller studies, but have not yet been incorporated into theAPS criteria. International consensus guidelines suggestwaiting at least 12 weeks before retesting to confirmantibody persistence. Reference J Thromb Haemost 2006: 4;295. < OR=12 Negative 13-20 Indeterminate 21-80 Low to Medium Positive >80 High Positive Greater than or equal to 40 MPL is a risk factorfor thrombosis and loss. For more information on this test, go to: http://education.Precipio/faq/DJO874 Test performed at [facility] [id number] [facility] [place] [address]Hwjngmlc: DULCE UNGER MD PHD Panel Description: Lipoprotein a [Moles/volume] in Serum or Plasma LIPOPROTEIN (a) 60 nmol/L <75 Risk: Optimal < 75 nmol /L; 11:07:00 Moderate 75-125 nmol/L; High >125 nmol/L Cardiovascular event risk category cut points(optimal, moderate, high) are based on Marcovina et al. ClinChem. 2003;49:1785 and Nordestgaard et al. Heart J.2010;31:2844 (results of meta-analysis and expert panelrecommendations).Test performed at [facility] [id number] [facility]Clinical [facility] LaboratoriesLASHON [facility] [place] [address]Sompcris: DULCE UNGER MD PHD Panel Description: PROTEIN C ACTIVITY W/REFL PROTEIN C ANTIGEN PROTEIN C, ACTIVITY 11:07:00 142 % 70-180 Units: % of normal Test performed at [employer] ([email or web address])/[employer] [id number] [place] [address]Ejxldjmz: SAHIL JIMENEZ MD,PHD Panel Description: PROTEIN S ACTIVITY W/REFL PROTEIN S ANTIGEN TOTAL PROTEIN S, 11:07:00 35 % 60-140 L Decreased levels of Protein S ACTIVITY activity may be foundin patients with hereditary deficiency, warfarintherapy, vitamin K deficiency, liver disease, DIC,or recent thrombosis as well as after surgery. Inaddition, it may be physiologic in . REPORT COMMENT:FASTING:NOTest performed at [employer] ([email or web address])/[facility] [place] [address]Mywdwius: SAHIL JIMENEZ MD,PHD Advance Directives Directive Yes / No Effective Date File Name Unknown Encounters Encounter Practice Location Reason(s) Diagnoses Date Provider Care Team Description For Visit Members Mary [place] Spotting Mariza Referring In Womens complicating 1-201 Nena. Provider: Health LIONEL, , second 7 700 Nena PO Box [facility] L, 1522, r for suprifrah [address], normal , Derik Vargas [place], second 120, Center , [email or web address] weeks [place] [facility] 120, [place] gestation of [place], [place], tel:+ [phone] [place], , [place]. [id number]. tel: tel: [phone] Mary Bro Encounter for Sep-0 Mariza In Womens suprvsn of normal 6-201 Nena. Health LIONEL, , second 7 700 PO Box [email or web address] weeks Medical 1522, gestation of [facility], Derik Vargas, 120, [id number], [place], [place], tel: [phone] , [place]. tel: [phone] Mary Bro Spotting Sep-0 Mariza In Womens Ultrasound complicating 6-201 Nena. Health LIONEL, , second 7 700 PO Box [facility]Encolympia medical cent[facility] Medical 1522, r for suprvsn of [facility], normal , Derik Vargas, second 120, [id number], [email or web address] weeks [facility] gestation of [place], tel:[phone] , [place]. tel: [phone] [facility] [place] Encounter for Aug-2 Mariza In Womens suprvsn of normal 1-201 Nena. Health [place], , second 7 700 PO Box [email or web address] weeks Medical 1522, gestation of [facility], Derik Vargas, 120, [id number], [place], [place], tel:[phone] , [place]. tel: [phone] [facility] [place] Spotting Aug-1 Mariza In Womens complicating 7-201 Nena. Health [place], , second 7 700 PO Box trimesterPlacenta Medical 1522, previa with [facility], hemorrhage, Derik Vargas, second 120, [id number], weeks [place], [place] gestation of [place], tel:+ [phone] [address] , [place]. tel: [phone] [facility] [place] Spotting Aug-1 Mariza In Womens Ultrasound complicating 7-201 Nena. Health [place], , second 7 700 PO Box trimesterPlacenta Medical 1522, previa with [facility], hemorrhage, Derik Vargas, second 120, [id number], [email or web address] weeks [place], [place] gestation of [place], tel:+ [phone] [address] , [place]. tel: [phone] [facility] [place] Placenta previa Dereck-2 Mariza In Womens specified as w/o 4-201 Nena. Health [place], hemorrhage, first 7 700 PO Box [id number] weeks Medical 1522, gestation of [facility], Derik Vargas, 120, [id number], [place], [place], tel:+ [phone] , [place]. tel: [phone] [facility] [place] Encounter for Dereck-2 Mariza In Womens Ultrasound suprvsn of normal 4-201 Nena. Health [place], , second 7 700 PO Box [email or web address] weeks Medical 1522, gestation of [facility], Derik Vargas, 120, [id number], [place], [place], tel:[phone] , [place]. tel: [phone] [facility] [place] Encounter for Dereck-1 Mariza In Womens suprvsn of normal 2-201 Nena. Health [place], , first 7 700 PO Box weeks Medical 1522, gestation of [facility], Derik Vargas, 120, [id number], [place], [place], tel:[phone] , [place]. tel: [phone] Mary [place] Encounter for Dec-1 Mariza In Womens Ultrasound suprvsn of normal 2-201 Nena. Health [place], , first 7 700 PO Box [email or web address] weeks Medical 1522, gestation of [facility], Derik Vargas, 120, [id number], [place], [place], tel:[phone] , [place]. tel:[phone] Mary Bro Pap Smear Silvestre-2 Mariza In Womens Screening, 6-201 Nena. Health [place], CervixEncounter 7 700 PO Box for suprvsn of Medical 1522, normal , [facility], first [email or web address] Derik Vargas, weeks gestation 120, , of [place], [place], tel:[phone] , [place]. tel: [phone] Family History Family Member Diagnosis Age At [...] [employer] [place] - Medicaid MC [id number] [place] Medicaid MC [id number] Social History Type Description Quantity Date Captured Alcohol Use Details No Caffeine Use Details Unknown Tobacco Use Status Unknown Smoking Status Never smoker Vital Signs Date / Height Weight BMI Pulse Blood Temperature Respiratory Body Head BMI Time: Rate Pressure Rate Surface Circumference percentile Area 167.80 32.2 lbs 3 mm[Hg] 10:30 kg/m AM eter (2) Chief Complaint And Reason For Visit Unknown Chief Complaint And Reason For Visit Reason For Referral Reason For Referral Unknown Plan Of Care Date Type Action Status Appointment Angela Yarbrough BOOKED Future Order: Radiology Order Complete OB Ultrasound > 14 Ordered Weeks ([id number]) Future Order: Radiology Order Ultrasound, OB Limited ([id number]) Ordered Future Order: Radiology Order Ultrasound < 14 wks ([id number]) Ordered Future Order: Radiology Order Nuchal Translucency ([id number]) Ordered Date Type Problem Goal Intervention Status [...]
--- NOTE | 2017-06-14 08:14 | Anesthesia Preoperative Report ---
Anesthesia Epidural/Spinal Rec - Date and Time Date: 06/14/17 Preoperative Diagnosis: Procedure: Labor Epidural Plan: Epidural - Vital Signs /Para: P:2 - Medictaions & Allergies Inpatient Medications: Current Medications Acetaminophen (Tylenol) 500 - 1,000 mg PO Q4H PRN PRN Reason: Pain Al Hydroxide/Mg Hydroxide (Maalox Plus) 30 ml PO Q3H PRN PRN Reason: Indigestion Calcium Carbonate (Tums) 500 - 1,000 mg PO Q2H PRN PRN Reason: Indigestion Carboprost Tromethamine (Hemabate) 250 mcg IM O PRN PRN Reason: .Downtime Dextrose/Lactated Ringer's (Dextrose 5%-Lactated Ringers) 1,000 mls @ 125 mls/ hr IV .Q8H PRN PRN Reason: Labor Lactated Ringer's (Lactated Ringers) 1,000 mls @ 999 mls/hr IV .Q1H1M PRN Oxytocin (Pitocin Drip) 30 unit in 500 mls @ 2 mls/hr IV .Q24H PRN; Protocol PRN Reason: Induction/Augmentation Lidocaine HCl (Xylocaine-Mpf 1% Vial) 0.2 mg ID O PRN PRN Reason: IV Start Methylergonovine Maleate (Methergine) 0.2 mg IM O PRN Misoprostol (Cytotec) 800 mcg PA ONCE PRN Allergies/Adverse Reactions: Allergies Allergy/AdvReac Type Severity Reaction Status Date / Time No Known Allergies Allergy Unknown Verified 12/05/08 04:10 - Home Medications Home Medications: Home Medications Medication Instructions Recorded Confirmed Type Acetaminophen 2 tab PO TID PRN #0 08/13/16 History NO ROUTINE MEDS #0 08/13/16 History - Medical History Respiratory: Reports: Asthma (has inhaler; taken infrequently) Cardiovascular: Reports: Other (occasional tachycardia) Neuro/Musculoskeletal: Reports: Back Problems (has done physical therapy) Other History: Reports: Now - Surgical History Reproductive Surgery/Treatment: DENIES: Section Anesthesia Reactions: None Hx Family Anesthesia Reaction: No History of Motion Sickness: No - Social History Smoking Status: Never smoker Second Hand Exposure: No Substance Use Type: does not use Alcohol Intake Frequency: does not drink Hx Chewing Tobacco Use: No - Pertinent Findings EKG Rhythm: Normal Sinus Rhythm - Physical Exam Respiratory Exam: lungs clear Cardiovascular Exam: regular rate and rhythm - Airway Assessment Mallampati Score: II TMD: 3 Fingerbreadths Neck Extension: good Overall Assessment: no airway concerns - ASA ASA Score: 2 - Discussion Discussion: Discussed risks/options/alternatives of anesthesia and questions answered. Patient consents. Nursing pain assessment noted. Anesthesia Discussion: spouse Attestation Statement: Prior to the delivery of any anesthetic medication, I examined the patient, developed the plan, obtained the patient's consent and discussed the risk and benefits of the procedure with the patient/guardian.
[2017-06-14] MEDS: D5LR 1,000 ML IV PRN ×2 (08:35→17:15)
[2017-06-14] MEDS: LR 1,000 ML IV PRN ×2 (08:35→13:15)
[2017-06-14 08:59] VITALS: O2SAT 100
[2017-06-14 09:14] VITALS: BMI 37.3
[2017-06-14] MEDS ORDERED: DiphenhydrAMINE 50 MG/ML INJECTION IVP PRN (10:57)
[2017-06-14] MEDS ORDERED: NALOXONE 0.4 MG/ML INJECTION IVP PRN (10:57)
[2017-06-14] MEDS ORDERED: ROPIVACAINE 1% 10MG/ML INJ 200 MG, SUFentanil 50 MCG in NS 100 ML EPI PRN (10:57)
[2017-06-14] MEDS: ONDANSETRON 4 MG/2 ML INJECTION IVP PRN ×2 (13:15→19:27)
--- NOTE | 2017-06-14 23:23 | Labor and Delivery Note ---
DATE OF DELIVERY 06/14/2017 NARRATIVE Ms. Yarbrough progressed well in first stage of labor. She began to push with excellent effort at the complete and +2 presentation. She pushed for about three contractions. delivering the head in the OA position. There was a tight nuchal cord x 1 that I was not able to reduce. I therefore doubly clamped and cut it. With a further push baby was delivered in total. Baby was then bulb suctioned and given to the nurses for care. This is a liveborn female with Apgars of 8/8. She weighed 6 pounds, 2.8 ounces. After a few moments the placenta delivered spontaneously intact. It had a normal- appearing three-vessel cord. The placenta was intact and normal. The amniotic sac was intact but there did appear to be an irregularly shaped band running throughout it and around the umbilical cord detached from all but the one edge of the placenta. This has been sent to Pathology as amniotic band versus amnion was suspected on sonogram. The perineum was intact. The total blood loss was only about 200 mL. At the time of this dictation mother and baby are doing well. KYLE
[2017-06-14] MEDS ORDERED: OXYTOCIN DRIP 30 UNIT/500 ML ML IV SCH (23:45)
[2017-06-14] MEDS ORDERED: DiphenhydrAMINE 25 MG CAPSULE PO PRN (23:52)
[2017-06-14] MEDS ORDERED: HYDROCORTISONE 2.5% CREAM 30gm RECTALLY PRN (23:52)
[2017-06-14] MEDS: IBUPROFEN 800 MG TABLET PO SCH (23:52)
[2017-06-15] MEDS: HYDROCODONE/APAP 5mg/325mg TABLET PO PRN ×5 (00:55→22:09)
[2017-06-15] MEDS ORDERED: PRENATAL VITAMIN TABLET PO SCH (09:00)
--- NOTE | 2017-06-15 09:04 | Anesthesia Postoperative Note ---
- Date and Time Date: 06/15/17 Time: 09:04 - Status Patient Participated in Evaluation: Patient Participated in Person Vital Signs: Temperature 98.2 F 06/15/17 01:28 Pulse Rate 98 06/15/17 01:28 Respiratory Rate 18 06/15/17 01:28 Blood Pressure 112/57 06/15/17 01:28 Pulse Oximetry 100 06/14/17 09:03 Respiratory Function: Airway Patent Mental Status: Alert and Oriented Pain Intensity: 0 Hydration: Taking PO Fluids Complications During Recover: None Apparent - Follow-Up Instructions Instructions: Per Surgeon
--- NOTE | 2017-06-15 11:53 | OB/GYN Progress Note ---
OB-PP Progress Note - General PPD1 Maternal Group B Strep: Negative Maternal Rubella Status: Immune - Subjective Date: 06/15/17 Lochia: Minimal Pain: controlled Voiding: voiding Nausea or Vomiting Present: No - Objective Vital Signs: Last Vital Signs Temp 98.2 F 06/15/17 01:28 Pulse 98 06/15/17 01:28 Resp 18 06/15/17 01:28 BP 112/57 06/15/17 01:28 Pulse Ox 100 06/14/17 09:03 Urine Output: good General: alert and oriented Abdomen: fundus firm, non-tender Extremities: non-tender Side: bilateral Site: leg Edema Degree: 1+ - Assessment Assessment: SP, - Plan Plan: routine care Expected date of discharge: 06/16/17
[2017-06-15] MEDS: DOCUSATE CALCIUM 240 MG CAPSULE PO SCH (13:53)
[2017-06-15] MEDS: IBUPROFEN 800 MG TABLET PO SCH ×3 (13:53→22:09)
[2017-06-16] MEDS: HYDROCODONE/APAP 5mg/325mg TABLET PO PRN ×2 (02:51→08:31)
--- NOTE | 2017-06-16 07:44 | OB/GYN Progress Note ---
OB-PP Progress Note - General PPD2 Maternal Group B Strep: Negative Maternal blood type: B+ Maternal Rubella Status: Immune - Subjective Date: 06/16/17 Lochia: Minimal Pain: controlled Voiding: voiding Nausea or Vomiting Present: No - Objective Vital Signs: Last Vital Signs Temp 97.8 F 06/15/17 22:10 Pulse 90 06/15/17 22:10 Resp 16 06/15/17 22:10 BP 117/67 06/15/17 22:10 Pulse Ox 100 06/15/17 05:30 General: alert and oriented Cardiovascular: regular rate,rhythm Respiratory: non-labored Abdomen: fundus firm Extremities: non-tender Edema: none - Assessment Assessment: SP, - Plan Plan: routine care, discharge home
[2017-06-16] MEDS: IBUPROFEN 800 MG TABLET PO SCH (08:30)
[2017-06-16] MEDS: DOCUSATE CALCIUM 240 MG CAPSULE PO SCH (08:30)
[2017-06-16 08:39] VITALS: BP 127/68; PULSE 89; RESP 20; TEMP 97.9
== END 2017-06-16 10:05 | disposition home or self-care (01) | DRG 775 ==
LOC: MC 07:57
PROVIDERS: ADMIT Obstetrics & Gynecology; ATTEND Obstetrics & Gynecology